=== PATIENT | female | born 1950 | race Caucasian/White ===

== ENCOUNTER 2018-07-24 09:00 | Outpatient (RCR) | payer MEDICARE, OTHER, SELFPAY ==
--- NOTE | 2018-07-09 08:52 | PT.OIE ---
Current Diagnoses Pain in right shoulder (07/07/18) Past Medical History (Last Reviewed 05/19/18 @ 07:28 by Ebony Rachel DO) Anxiety (Chronic ~2014) Carpal tunnel syndrome (Chronic ~2009) Chronic back pain (Chronic ~1989) Chronic cough (Chronic ~2016) Degenerative disc disease, lumbar (Chronic ~1994) Depression (Chronic ~1989) Foot pain (Chronic ~2011) Hay fever (Chronic ~1974) Irritable bowel syndrome (Chronic ~1999) Recurrent sinusitis (Chronic ~1974) Sleep apnea (Chronic ~2000) Chicken pox (Resolved ~1954) Measles (Resolved ~1954) Mumps (Resolved ~1954) Rheumatic fever (Resolved ~1958) Past Surgical History (Last Reviewed 05/19/18 @ 07:28 by Ebony Rachel DO) History of carpal tunnel repair (~2000) History of carpal tunnel repair (~2016) History of spinal fusion Status post breast reduction Status post cholecystectomy Status post hysterectomy Provider Visit Care Team Role Provider Type Ebony Rachel DO Attending Provider Physician Family Provider Primary Care Provider Specialty: Family Practice Address: [address] [place] [address] Email: [email or web address] Physical Therapy Initial Evaluation PT-OP-A Visit Information Start: 07/08/18 09:29 Freq: Status: Active Protocol: Document 07/07/18 09:00 AMB (Rec: 07/08/18 09:40 AMB [email or web address]) Out-Patient Physical Therapy Visit Information Visit Information Visit Type Initial Evaluation Visit Note 1/10 G code Visit Start Time 09:00 Visit Stop Time 09:45 Total Visit Minutes 45 Visit Number 1 Evaluation Information Evaluation Date 07/08/18 PT-OP-B Current Condition Start: 07/08/18 09:29 Freq: Status: Active Protocol: Document 07/07/18 09:00 AMB (Rec: 07/08/18 09:40 AMB [email or web address]) Current Condition History of Current Condition Onset Date 1 year ago Current Complaints R anterior shoulder pain History of Current Condition The patient denies specific injury, over the past year lifting the shoulder and sleeping on it have become progressively more painful. She is left handed. Prior Functional Status Baseline Function- Work/School Patient is retired Current Functional Impairments (Reported) Functional Limitations- ADL's Dressing and hair care are painful Functional Limitations- Recreation/ Yardwork is painful and she Hobbies avoids it. Personal Factors Other Personal Factors That May Effect Lumbar fusion history (PT did Therapy/Recovery not help with back pain), difficulty lying supine on treatment table due to back pain, even with knees bent. history of bilateral carpal tunnel release. PT-OP-C Subjective Start: 07/08/18 09:29 Freq: Status: Active Protocol: Document 07/07/18 09:00 AMB (Rec: 07/08/18 09:40 AMB [email or web address]) Patient Questionnaires Quick Dash- Upper Extremity Quick Dash UE Score 45 Quick Dash UE Impairment 40 to 59% Impaired (Score 40- 59) OP-PT Pain Assessment Location Right Anterior Shoulder Intensity 7 Scale Used Numeric (1 - 10) Pain Aggravating Factors ADL's Activity Exercise Lifting PT-OP-F Manual Assessment Start: 07/08/18 09:29 Freq: Status: Active Protocol: Document 07/07/18 09:00 AMB (Rec: 07/09/18 08:17 AMB [email or web address]) Manual Assessments Soft Tissue Assessment Soft Tissue Mobility Assessment Tenderness over proximal attachment of long head of biceps tendon. No tenderness over supraspinatus or over scapula. Joint Mobility Assessment Joint Mobility Assessment Guarding and tightness in GH joint especially into inferior and posterior glides. PT-OP-J Posture/Palpation/Skin Start: 07/08/18 09:29 Freq: Status: Active Protocol: Document 07/07/18 09:00 AMB (Rec: 07/09/18 08:17 AMB [email or web address]) Posture Evaluation Comments Posture Comments Moderate thoracic kyphosis with forward shoulders, milding winging scapulae bilaterally along medial border. PT-OP-K Range of Motion Start: 07/08/18 09:29 Freq: Status: Active Protocol: Document 07/07/18 09:00 AMB (Rec: 07/09/18 07:55 AMB [email or web address]) Shoulder Goniometric Range of Motion Shoulder Measured in Degrees Left Active Testing Position Sitting Flexion 170 Abduction 160 External Rotation at 0 degrees Abduction 70 Right Active Testing Position Sitting Flexion 150 Abduction 140 External Rotation at 0 degrees Abduction 50 PT-OP-L Special Tests Start: 07/08/18 09:29 Freq: Status: Active Protocol: Document 07/07/18 09:00 AMB (Rec: 07/09/18 07:55 AMB [email or web address]) Special Tests Shoulder Special Tests Empty Can Test Results positive on R, negative on L Vance Tad Impingement Test Results positive for pain on the R, not on the L PT-OP-M Strength Start: 07/08/18 09:29 Freq: Status: Active Protocol: Document 07/07/18 09:00 AMB (Rec: 07/09/18 07:55 AMB [email or web address]) Shoulder Strength Shoulder Manual Muscle Testing Right Flexion 3+ Fair+ Extension 4 Good Abduction (C5) 3+ Fair+ External Rotation 3- Fair- Internal Rotation 3- Fair- Left Reason Not Measured WFL PT-OP-Q Treatments Start: 07/08/18 09:29 Freq: Status: Active Protocol: Document 07/07/18 09:00 AMB (Rec: 07/09/18 08:17 AMB [email or web address]) Therapeutic Exercises Sitting Exercises 2 Sitting Exercise Name shoulder isometrics Reps/Minutes 5x5 ea Comments extension, ER, IR Standing Exercises 1 Standing Exercise Name Doorway stretch Reps/Minutes 30x2 Comments modifed to limited shoulder abduction PT-OP-T Assessment and Plan Start: 07/08/18 09:29 Freq: Status: Active Protocol: Document 07/07/18 09:00 AMB (Rec: 07/09/18 08:52 AMB [email or web address]) Physical Therapy Assessment Rehab Potential Rehabilitation Potential Good Evaluation Complexity Number of Personal Factors/Comorbidities 1-2 Number of Body Systems Impaired 4 or More Clinical Presentation at Evaluation Evolving Impairments Impairments Functional Activities Pain Posture ROM Soft Tissue Mobility Strength Goals Two Impairment Activity tolerance Short Term Goal (STG) The patient will wake up from sleep with 4/10 shoulder pain or less. STG Duration 4 weeks Usp Goal (LTG) The patient will lift a bag of groceries from the floor to countertop height without an increase in baseline pain. LTG Duration 8 weeks One Impairment Range of motion Short Term Goal (STG) The patient will increase her active shoulder flexion on the right to 160 degrees so that she can get a sweater on without increasing her baseline pain. STG Duration 4 weeks Route Delivery Supervisor Goal (LTG) The patient will increase her active shoulder abduction on the right to 150 degrees to assist in hair care. LTG Duration 8 weeks Assessment Summary Assessment The patient presents to physical therapy with worsening anterior shoulder pain with glenohumeral impingement, poor posture, strength, and range of motion. The patient will benefit from physical therapy to improve her strength and upper extremity function and reduce her pain. Physical Therapy Plan Frequency and Duration Frequency of Treatment 2x/Week Duration of Treatment 8 weeks Plan of Care Start Date 07/07/18 Plan of Care End Date 09/01/18 Therapeutic Interventions Therapeutic Interventions Home Exercise Program Joint Mobilizations Manual Therapy Neuromuscular Re-education Self-Care/Home Management Therapeutic Activities Therapeutic Exercises Modalities Cold Pack/Ice Massage Electric Stimulation Hot Packs Ultrasound Next Visit Focus/Plan Next Note Type Treatment Note
--- NOTE | 2018-07-09 08:53 | PT.OPPOC ---
Current Diagnoses Pain in right shoulder (07/07/18) Provider Visit Care Team Role Provider Type Ebony Rachel DO Attending Provider Physician Family Provider Primary Care Provider Specialty: Family Practice Address: [address] [place] [address], [id number] Email: [email or web address] Plan Of Care PT-OP-T Assessment and Plan Start: 07/08/18 09:29 Freq: Status: Active Protocol: Document 07/07/18 09:00 AMB (Rec: 07/09/18 08:52 AMB [email or web address]) Physical Therapy Assessment Rehab Potential Rehabilitation Potential Good Evaluation Complexity Number of Personal Factors/Comorbidities 1-2 Number of Body Systems Impaired 4 or More Clinical Presentation at Evaluation Evolving Impairments Impairments Functional Activities Pain Posture ROM Soft Tissue Mobility Strength Goals Two Impairment Activity tolerance Short Term Goal (STG) The patient will wake up from sleep with 4/10 shoulder pain or less. STG Duration 4 weeks Magazine Designer Goal (LTG) The patient will lift a bag of groceries from the floor to countertop height without an increase in baseline pain. LTG Duration 8 weeks One Impairment Range of motion Short Term Goal (STG) The patient will increase her active shoulder flexion on the right to 160 degrees so that she can get a sweater on without increasing her baseline pain. STG Duration 4 weeks Magazine Designer Goal (LTG) The patient will increase her active shoulder abduction on the right to 150 degrees to assist in hair care. LTG Duration 8 weeks Assessment Summary Assessment The patient presents to physical therapy with worsening anterior shoulder pain with glenohumeral impingement, poor posture, strength, and range of motion. The patient will benefit from physical therapy to improve her strength and upper extremity function and reduce her pain. Physical Therapy Plan Frequency and Duration Frequency of Treatment 2x/Week Duration of Treatment 8 weeks Plan of Care Start Date 07/07/18 Plan of Care End Date 09/01/18 Therapeutic Interventions Therapeutic Interventions Home Exercise Program Joint Mobilizations Manual Therapy Neuromuscular Re-education Self-Care/Home Management Therapeutic Activities Therapeutic Exercises Modalities Cold Pack/Ice Massage Electric Stimulation Hot Packs Ultrasound Next Visit Focus/Plan Next Note Type Treatment Note Plan of Care Dates Plan of Care Start Date 07/07/18 Plan of Care End Date 09/01/18 Please Sign and Return: I have reviewed this Plan of Care and certify that the skilled therapy services above are required to meet the patient?s needs. Physician Signature Date Printed Name and Credentials Clinical Instructor Signature Printed Name and Credentials
--- NOTE | 2018-07-10 12:51 | PT.OTN ---
Current Diagnoses Pain in right shoulder (07/10/18) Physical Therapy Treatment Note PT-OP-A Visit Information Start: 07/08/18 09:29 Freq: Status: Active Protocol: Document 07/10/18 09:00 AMB (Rec: 07/10/18 09:00 AMB [email or web address]) Out-Patient Physical Therapy Visit Information Visit Information Visit Type Treatment Note Visit Note 2/10 G code Visit Start Time 09:00 Visit Stop Time 09:45 Total Visit Minutes 45 Visit Number 2 Evaluation Information Evaluation Date 07/08/18 PT-OP-B Current Condition Start: 07/08/18 09:29 Freq: Status: Active Protocol: Document 07/07/18 09:00 AMB (Rec: 07/08/18 09:40 AMB [email or web address]) Current Condition History of Current Condition Onset Date 1 year ago Current Complaints R anterior shoulder pain History of Current Condition The patient denies specific injury, over the past year lifting hte shoulder and sleeping on it have become progressively more painful. She is left handed. Prior Functional Status Baseline Function- Work/School Patient is retired Current Functional Impairments (Reported) Functional Limitations- ADL's Dressing and hair care are painful Functional Limitations- Recreation/ Yardwork is painful and she Hobbies avoids it. Personal Factors Other Personal Factors That May Effect Lumbar fusion history (PT did Therapy/Recovery not help with back pain), difficulty lying supine on treatment table due to back pain, even with knees bent. history of bilateral carpal tunnel release. PT-OP-C Subjective Start: 07/08/18 09:29 Freq: Status: Active Protocol: Document 07/10/18 09:00 AMB (Rec: 07/10/18 09:09 AMB [id number]) OP-PT Subjective Patient Comments Patient Comments Pt states she has been having difficulty sleeping. PT-OP-F Manual Assessment Start: 07/08/18 09:29 Freq: Status: Active Protocol: Document 07/07/18 09:00 AMB (Rec: 07/09/18 08:17 AMB [email or web address]) Manual Assessments Soft Tissue Assessment Soft Tissue Mobility Assessment Tenderness over proximal attachment of long head of biceps tendon. No tenderness over supraspinatus or over scapula. Joint Mobility Assessment Joint Mobility Assessment Guarding and tightness in GH joint especially into inferior and posterior glides. PT-OP-J Posture/Palpation/Skin Start: 07/08/18 09:29 Freq: Status: Active Protocol: Document 07/07/18 09:00 AMB (Rec: 07/09/18 08:17 AMB [email or web address]) Posture Evaluation Comments Posture Comments Moderate thoracic kyphosis with forward shoulders, milding winging scapulae bilaterally along medial border. PT-OP-K Range of Motion Start: 07/08/18 09:29 Freq: Status: Active Protocol: Document 07/07/18 09:00 AMB (Rec: 07/09/18 07:55 AMB [email or web address]) Shoulder Goniometric Range of Motion Shoulder Measured in Degrees Left Active Testing Position Sitting Flexion 170 Abduction 160 External Rotation at 0 degrees Abduction 70 Right Active Testing Position Sitting Flexion 150 Abduction 140 External Rotation at 0 degrees Abduction 50 PT-OP-L Special Tests Start: 07/08/18 09:29 Freq: Status: Active Protocol: Document 07/07/18 09:00 AMB (Rec: 07/09/18 07:55 AMB [email or web address]) Special Tests Shoulder Special Tests Empty Can Test Results positive on R, negative on L Vance Tad Impingement Test Results positive for pain on the R, not on the L PT-OP-M Strength Start: 07/08/18 09:29 Freq: Status: Active Protocol: Document 07/07/18 09:00 AMB (Rec: 07/09/18 07:55 AMB [email or web address]) Shoulder Strength Shoulder Manual Muscle Testing Right Flexion 3+ Fair+ Extension 4 Good Abduction (C5) 3+ Fair+ External Rotation 3- Fair- Internal Rotation 3- Fair- Left Reason Not Measured WFL PT-OP-Q Treatments Start: 07/08/18 09:29 Freq: Status: Active Protocol: Document 07/10/18 09:00 AMB (Rec: 07/10/18 12:50 AMB [email or web address]) Cardio Equipment Upper Body Ergometer (UBE) Duration (Minutes) 5 RPM 60 Other fwd bckward Therapeutic Exercises Sidelying Exercises 1 Sidelying Exercise Name R shoulder ER AROM Reps/Minutes 2x10 Sitting Exercises 3 Sitting Exercise Name scapular retraction Reps/Minutes 2x10, 3 hold Comments AROM 1 Sitting Exercise Name 3 way biceps curl Resistance 3# Reps/Minutes 2x10 2 Sitting Exercise Name shoulder isometrics Reps/Minutes 5x5 ea Comments extension, ER, IR Manual Therapy Treatment Soft Tissue Mobilization 1 Body Location R shoulder Mobilization Type Cross-Friction Intensity/Depth Moderate Body Position Sidelying Taping 1 Body Location R shoulder Type of Tape Kinesio Tape Comments Y and I PT-OP-T Assessment and Plan Start: 07/08/18 09:29 Freq: Status: Active Protocol: Document 07/10/18 09:00 AMB (Rec: 07/10/18 12:50 AMB [email or web address]) Physical Therapy Assessment Assessment Summary Assessment Pt tolerated treatment well, but against gravity abduction is painful. Physical Therapy Plan Next Visit Focus/Plan Next Note Type Treatment Note Next Visit Plan Progress scapular stability
--- NOTE | 2018-07-15 13:01 | PT.OTN ---
Current Diagnoses Pain in right shoulder (07/15/18) Physical Therapy Treatment Note PT-OP-A Visit Information Start: 07/08/18 09:29 Freq: Status: Active Protocol: Document 07/15/18 09:00 AMB (Rec: 07/15/18 09:10 AMB [id number]) Out-Patient Physical Therapy Visit Information Visit Information Visit Type Treatment Note Visit Note 3/10 G code Visit Start Time 09:00 Visit Stop Time 09:45 Total Visit Minutes 45 Visit Number 3 Evaluation Information Evaluation Date 07/08/18 PT-OP-B Current Condition Start: 07/08/18 09:29 Freq: Status: Active Protocol: Document 07/07/18 09:00 AMB (Rec: 07/08/18 09:40 AMB [email or web address]) Current Condition History of Current Condition Onset Date 1 year ago Current Complaints R anterior shoulder pain History of Current Condition The patient denies specific injury, over the past year lifting hte shoulder and sleeping on it have become progressively more painful. She is left handed. Prior Functional Status Baseline Function- Work/School Patient is retired Current Functional Impairments (Reported) Functional Limitations- ADL's Dressing and hair care are painful Functional Limitations- Recreation/ Yardwork is painful and she Hobbies avoids it. Personal Factors Other Personal Factors That May Effect Lumbar fusion history (PT did Therapy/Recovery not help with back pain), difficulty lying supine on treatment table due to back pain, even with knees bent. history of bilateral carpal tunnel release. PT-OP-C Subjective Start: 07/08/18 09:29 Freq: Status: Active Protocol: Document 07/15/18 09:00 AMB (Rec: 07/15/18 09:10 AMB [id number]) OP-PT Subjective Patient Comments Patient Comments Pt states waking up in the morning has been better, but then the pain starts about an hour later. PT-OP-F Manual Assessment Start: 07/08/18 09:29 Freq: Status: Active Protocol: Document 07/07/18 09:00 AMB (Rec: 07/09/18 08:17 AMB [email or web address]) Manual Assessments Soft Tissue Assessment Soft Tissue Mobility Assessment Tenderness over proximal attachment of long head of biceps tendon. No tenderness over supraspinatus or over scapula. Joint Mobility Assessment Joint Mobility Assessment Guarding and tightness in GH joint especially into inferior and posterior glides. PT-OP-J Posture/Palpation/Skin Start: 07/08/18 09:29 Freq: Status: Active Protocol: Document 07/07/18 09:00 AMB (Rec: 07/09/18 08:17 AMB [email or web address]) Posture Evaluation Comments Posture Comments Moderate thoracic kyphosis with forward shoulders, milding winging scapulae bilaterally along medial border. PT-OP-K Range of Motion Start: 07/08/18 09:29 Freq: Status: Active Protocol: Document 07/07/18 09:00 AMB (Rec: 07/09/18 07:55 AMB [email or web address]) Shoulder Goniometric Range of Motion Shoulder Measured in Degrees Left Active Testing Position Sitting Flexion 170 Abduction 160 External Rotation at 0 degrees Abduction 70 Right Active Testing Position Sitting Flexion 150 Abduction 140 External Rotation at 0 degrees Abduction 50 PT-OP-L Special Tests Start: 07/08/18 09:29 Freq: Status: Active Protocol: Document 07/07/18 09:00 AMB (Rec: 07/09/18 07:55 AMB [email or web address]) Special Tests Shoulder Special Tests Empty Can Test Results positive on R, negative on L Vance Tad Impingement Test Results positive for pain on the R, not on the L PT-OP-M Strength Start: 07/08/18 09:29 Freq: Status: Active Protocol: Document 07/07/18 09:00 AMB (Rec: 07/09/18 07:55 AMB [email or web address]) Shoulder Strength Shoulder Manual Muscle Testing Right Flexion 3+ Fair+ Extension 4 Good Abduction (C5) 3+ Fair+ External Rotation 3- Fair- Internal Rotation 3- Fair- Left Reason Not Measured WFL PT-OP-Q Treatments Start: 07/08/18 09:29 Freq: Status: Active Protocol: Document 07/15/18 09:00 AMB (Rec: 07/15/18 09:18 AMB [email or web address]) Therapeutic Exercises Supine Exercises 1 Supine Exercise Name serratus punch Side right Reps/Minutes 2x10 Sidelying Exercises 1 Sidelying Exercise Name R shoulder ER AROM Reps/Minutes 2x10 Sitting Exercises 4 Sitting Exercise Name daphne Comments flexion only 3 Sitting Exercise Name scapular retraction Reps/Minutes 2x10, 3 hold Comments with #3 t band 1 Sitting Exercise Name 3 way biceps curl Resistance 3# Reps/Minutes 2x10 2 Sitting Exercise Name shoulder isometrics Reps/Minutes 5x5 ea Comments extension, ER, IR Manual Therapy Treatment Soft Tissue Mobilization 1 Body Location R shoulder Mobilization Type Cross-Friction Intensity/Depth Moderate Body Position Sidelying Taping 1 Body Location R shoulder Type of Tape Kinesio Tape Comments Y and I PT-OP-T Assessment and Plan Start: 07/08/18 09:29 Freq: Status: Active Protocol: Document 07/15/18 09:00 AMB (Rec: 07/15/18 12:59 AMB [email or web address]) Physical Therapy Assessment Assessment Summary Assessment Pt tolerated increased resistance well Physical Therapy Plan Next Visit Focus/Plan Next Note Type Treatment Note Next Visit Plan progress HEP
--- NOTE | 2018-07-17 12:00 | PT.OTN ---
Current Diagnoses Pain in right shoulder (07/17/18) Physical Therapy Treatment Note PT-OP-A Visit Information Start: 07/08/18 09:29 Freq: Status: Active Protocol: Document 07/17/18 09:00 AMB (Rec: 07/17/18 09:12 AMB [id number]) Out-Patient Physical Therapy Visit Information Visit Information Visit Type Treatment Note Visit Note 4/10 G code Visit Start Time 09:00 Visit Stop Time 09:45 Total Visit Minutes 45 Visit Number 4 Evaluation Information Evaluation Date 07/08/18 PT-OP-B Current Condition Start: 07/08/18 09:29 Freq: Status: Active Protocol: Document 07/07/18 09:00 AMB (Rec: 07/08/18 09:40 AMB [email or web address]) Current Condition History of Current Condition Onset Date 1 year ago Current Complaints R anterior shoulder pain History of Current Condition The patient denies specific injury, over the past year lifting hte shoulder and sleeping on it have become progressively more painful. She is left handed. Prior Functional Status Baseline Function- Work/School Patient is retired Current Functional Impairments (Reported) Functional Limitations- ADL's Dressing and hair care are painful Functional Limitations- Recreation/ Yardwork is painful and she Hobbies avoids it. Personal Factors Other Personal Factors That May Effect Lumbar fusion history (PT did Therapy/Recovery not help with back pain), difficulty lying supine on treatment table due to back pain, even with knees bent. history of bilateral carpal tunnel release. PT-OP-C Subjective Start: 07/08/18 09:29 Freq: Status: Active Protocol: Document 07/17/18 09:00 AMB (Rec: 07/17/18 09:12 AMB [id number]) OP-PT Subjective Patient Comments Patient Comments Pt states pain was increased yesterday morning, today it was ok. PT-OP-F Manual Assessment Start: 07/08/18 09:29 Freq: Status: Active Protocol: Document 07/07/18 09:00 AMB (Rec: 07/09/18 08:17 AMB [email or web address]) Manual Assessments Soft Tissue Assessment Soft Tissue Mobility Assessment Tenderness over proximal attachment of long head of biceps tendon. No tenderness over supraspinatus or over scapula. Joint Mobility Assessment Joint Mobility Assessment Guarding and tightness in GH joint especially into inferior and posterior glides. PT-OP-J Posture/Palpation/Skin Start: 07/08/18 09:29 Freq: Status: Active Protocol: Document 07/07/18 09:00 AMB (Rec: 07/09/18 08:17 AMB [email or web address]) Posture Evaluation Comments Posture Comments Moderate thoracic kyphosis with forward shoulders, milding winging scapulae bilaterally along medial border. PT-OP-K Range of Motion Start: 07/08/18 09:29 Freq: Status: Active Protocol: Document 07/07/18 09:00 AMB (Rec: 07/09/18 07:55 AMB [email or web address]) Shoulder Goniometric Range of Motion Shoulder Measured in Degrees Left Active Testing Position Sitting Flexion 170 Abduction 160 External Rotation at 0 degrees Abduction 70 Right Active Testing Position Sitting Flexion 150 Abduction 140 External Rotation at 0 degrees Abduction 50 PT-OP-L Special Tests Start: 07/08/18 09:29 Freq: Status: Active Protocol: Document 07/07/18 09:00 AMB (Rec: 07/09/18 07:55 AMB [email or web address]) Special Tests Shoulder Special Tests Empty Can Test Results positive on R, negative on L Vance Tad Impingement Test Results positive for pain on the R, not on the L PT-OP-M Strength Start: 07/08/18 09:29 Freq: Status: Active Protocol: Document 07/07/18 09:00 AMB (Rec: 07/09/18 07:55 AMB [email or web address]) Shoulder Strength Shoulder Manual Muscle Testing Right Flexion 3+ Fair+ Extension 4 Good Abduction (C5) 3+ Fair+ External Rotation 3- Fair- Internal Rotation 3- Fair- Left Reason Not Measured WFL PT-OP-Q Treatments Start: 07/08/18 09:29 Freq: Status: Active Protocol: Document 07/15/18 09:00 AMB (Rec: 07/15/18 09:18 AMB [id number]) Therapeutic Exercises Supine Exercises 1 Supine Exercise Name serratus punch Side right Reps/Minutes 2x10 Sidelying Exercises 1 Sidelying Exercise Name R shoulder ER AROM Reps/Minutes 2x10 Sitting Exercises 4 Sitting Exercise Name daphne Comments flexion only 3 Sitting Exercise Name scapular retraction Reps/Minutes 2x10, 3 hold Comments with #3 t band 1 Sitting Exercise Name 3 way biceps curl Resistance 3# Reps/Minutes 2x10 2 Sitting Exercise Name shoulder isometrics Reps/Minutes 5x5 ea Comments extension, ER, IR Manual Therapy Treatment Soft Tissue Mobilization 1 Body Location R shoulder Mobilization Type Cross-Friction Intensity/Depth Moderate Body Position Sidelying Taping 1 Body Location R shoulder Type of Tape Kinesio Tape Comments Y and I PT-OP-T Assessment and Plan Start: 07/08/18 09:29 Freq: Status: Active Protocol: Document 07/15/18 09:00 AMB (Rec: 07/15/18 12:59 AMB [email or web address]) Physical Therapy Assessment Assessment Summary Assessment Pt tolerated increased resistance well Physical Therapy Plan Next Visit Focus/Plan Next Note Type Treatment Note Next Visit Plan progress HEP
--- NOTE | 2018-07-21 11:54 | PT.OTN ---
Current Diagnoses Pain in right shoulder (07/21/18) Physical Therapy Treatment Note PT-OP-A Visit Information Start: 07/08/18 09:29 Freq: Status: Active Protocol: Document 07/21/18 09:00 AMB (Rec: 07/21/18 09:01 AMB [id number]) Out-Patient Physical Therapy Visit Information Evaluation Information Evaluation Date 07/08/18 PT-OP-B Current Condition Start: 07/08/18 09:29 Freq: Status: Active Protocol: Document 07/07/18 09:00 AMB (Rec: 07/08/18 09:40 AMB [email or web address]) Current Condition History of Current Condition Onset Date 1 year ago Current Complaints R anterior shoulder pain History of Current Condition The patient denies specific injury, over the past year lifting hte shoulder and sleeping on it have become progressively more painful. She is left handed. Prior Functional Status Baseline Function- Work/School Patient is retired Current Functional Impairments (Reported) Functional Limitations- ADL's Dressing and hair care are painful Functional Limitations- Recreation/ Yardwork is painful and she Hobbies avoids it. Personal Factors Other Personal Factors That May Effect Lumbar fusion history (PT did Therapy/Recovery not help with back pain), difficulty lying supine on treatment table due to back pain, even with knees bent. history of bilateral carpal tunnel release. PT-OP-C Subjective Start: 07/08/18 09:29 Freq: Status: Active Protocol: Document 07/21/18 09:00 AMB (Rec: 07/21/18 09:08 AMB [id number]) OP-PT Subjective Patient Comments Patient Comments The pt reports she slept wrong 2 nights ago and that irritated her arm. PT-OP-F Manual Assessment Start: 07/08/18 09:29 Freq: Status: Active Protocol: Document 07/07/18 09:00 AMB (Rec: 07/09/18 08:17 AMB [email or web address]) Manual Assessments Soft Tissue Assessment Soft Tissue Mobility Assessment Tenderness over proximal attachment of long head of biceps tendon. No tenderness over supraspinatus or over scapula. Joint Mobility Assessment Joint Mobility Assessment Guarding and tightness in GH joint especially into inferior and posterior glides. PT-OP-J Posture/Palpation/Skin Start: 07/08/18 09:29 Freq: Status: Active Protocol: Document 07/07/18 09:00 AMB (Rec: 07/09/18 08:17 AMB [email or web address]) Posture Evaluation Comments Posture Comments Moderate thoracic kyphosis with forward shoulders, milding winging scapulae bilaterally along medial border. PT-OP-K Range of Motion Start: 07/08/18 09:29 Freq: Status: Active Protocol: Document 07/07/18 09:00 AMB (Rec: 07/09/18 07:55 AMB [email or web address]) Shoulder Goniometric Range of Motion Shoulder Measured in Degrees Left Active Testing Position Sitting Flexion 170 Abduction 160 External Rotation at 0 degrees Abduction 70 Right Active Testing Position Sitting Flexion 150 Abduction 140 External Rotation at 0 degrees Abduction 50 PT-OP-L Special Tests Start: 07/08/18 09:29 Freq: Status: Active Protocol: Document 07/07/18 09:00 AMB (Rec: 07/09/18 07:55 AMB [email or web address]) Special Tests Shoulder Special Tests Empty Can Test Results positive on R, negative on L Vance Tad Impingement Test Results positive for pain on the R, not on the L PT-OP-M Strength Start: 07/08/18 09:29 Freq: Status: Active Protocol: Document 07/07/18 09:00 AMB (Rec: 07/09/18 07:55 AMB [email or web address]) Shoulder Strength Shoulder Manual Muscle Testing Right Flexion 3+ Fair+ Extension 4 Good Abduction (C5) 3+ Fair+ External Rotation 3- Fair- Internal Rotation 3- Fair- Left Reason Not Measured WFL PT-OP-Q Treatments Start: 07/08/18 09:29 Freq: Status: Active Protocol: Document 07/21/18 09:00 AMB (Rec: 07/21/18 11:53 AMB [email or web address]) Therapeutic Exercises Supine Exercises 1 Supine Exercise Name serratus punch Side right Reps/Minutes 2x10 Sidelying Exercises 2 Sidelying Exercise Name abduction AROM Reps/Minutes 5 Comments 0-45 degrees Sitting Exercises 4 Sitting Exercise Name daphne Comments flexion and abduction 3 Sitting Exercise Name scapular retraction Reps/Minutes 2x10, 3 hold Comments with #3 t band Standing Exercises 2 Standing Exercise Name IR t band Resistance #1 Reps/Minutes 2x10 Manual Therapy Treatment Soft Tissue Mobilization 1 Body Location R shoulder Mobilization Type Cross-Friction Intensity/Depth Moderate Body Position Sidelying Joint Mobilizations 1 Joint scapulothoracic Direction all planes Grade III Body Position Sidelying PT-OP-T Assessment and Plan Start: 07/08/18 09:29 Freq: Status: Active Protocol: Document 07/21/18 09:00 AMB (Rec: 07/21/18 11:53 AMB [email or web address]) Physical Therapy Assessment Assessment Summary Assessment Pt with significant soreness with shoulder abduction. Physical Therapy Plan Next Visit Focus/Plan Next Note Type Treatment Note Next Visit Plan Progress HEP
--- NOTE | 2018-07-24 15:08 | PT.OTN ---
Current Diagnoses Pain in right shoulder (07/24/18) Physical Therapy Treatment Note PT-OP-A Visit Information Start: 07/08/18 09:29 Freq: Status: Active Protocol: Document 07/24/18 09:00 AMB (Rec: 07/24/18 15:07 AMB [email or web address]) Out-Patient Physical Therapy Visit Information Visit Information Visit Type Treatment Note Visit Note 6/10 G code Visit Start Time 09:00 Visit Stop Time 09:45 Total Visit Minutes 45 Visit Number 6 Evaluation Information Evaluation Date 07/08/18 PT-OP-B Current Condition Start: 07/08/18 09:29 Freq: Status: Active Protocol: Document 07/07/18 09:00 AMB (Rec: 07/08/18 09:40 AMB [email or web address]) Current Condition History of Current Condition Onset Date 1 year ago Current Complaints R anterior shoulder pain History of Current Condition The patient denies specific injury, over the past year lifting hte shoulder and sleeping on it have become progressively more painful. She is left handed. Prior Functional Status Baseline Function- Work/School Patient is retired Current Functional Impairments (Reported) Functional Limitations- ADL's Dressing and hair care are painful Functional Limitations- Recreation/ Yardwork is painful and she Hobbies avoids it. Personal Factors Other Personal Factors That May Effect Lumbar fusion history (PT did Therapy/Recovery not help with back pain), difficulty lying supine on treatment table due to back pain, even with knees bent. history of bilateral carpal tunnel release. PT-OP-C Subjective Start: 07/08/18 09:29 Freq: Status: Active Protocol: Document 07/21/18 09:00 AMB (Rec: 07/21/18 09:08 AMB [id number]) OP-PT Subjective Patient Comments Patient Comments The pt reports she slept wrong 2 nights ago and that irritated her arm. PT-OP-F Manual Assessment Start: 07/08/18 09:29 Freq: Status: Active Protocol: Document 07/07/18 09:00 AMB (Rec: 07/09/18 08:17 AMB [email or web address]) Manual Assessments Soft Tissue Assessment Soft Tissue Mobility Assessment Tenderness over proximal attachment of long head of biceps tendon. No tenderness over supraspinatus or over scapula. Joint Mobility Assessment Joint Mobility Assessment Guarding and tightness in GH joint especially into inferior and posterior glides. PT-OP-J Posture/Palpation/Skin Start: 07/08/18 09:29 Freq: Status: Active Protocol: Document 07/07/18 09:00 AMB (Rec: 07/09/18 08:17 AMB [email or web address]) Posture Evaluation Comments Posture Comments Moderate thoracic kyphosis with forward shoulders, milding winging scapulae bilaterally along medial border. PT-OP-K Range of Motion Start: 07/08/18 09:29 Freq: Status: Active Protocol: Document 07/07/18 09:00 AMB (Rec: 07/09/18 07:55 AMB [email or web address]) Shoulder Goniometric Range of Motion Shoulder Measured in Degrees Left Active Testing Position Sitting Flexion 170 Abduction 160 External Rotation at 0 degrees Abduction 70 Right Active Testing Position Sitting Flexion 150 Abduction 140 External Rotation at 0 degrees Abduction 50 PT-OP-L Special Tests Start: 07/08/18 09:29 Freq: Status: Active Protocol: Document 07/07/18 09:00 AMB (Rec: 07/09/18 07:55 AMB [email or web address]) Special Tests Shoulder Special Tests Empty Can Test Results positive on R, negative on L Vance Tad Impingement Test Results positive for pain on the R, not on the L PT-OP-M Strength Start: 07/08/18 09:29 Freq: Status: Active Protocol: Document 07/07/18 09:00 AMB (Rec: 07/09/18 07:55 AMB [email or web address]) Shoulder Strength Shoulder Manual Muscle Testing Right Flexion 3+ Fair+ Extension 4 Good Abduction (C5) 3+ Fair+ External Rotation 3- Fair- Internal Rotation 3- Fair- Left Reason Not Measured WFL PT-OP-Q Treatments Start: 07/08/18 09:29 Freq: Status: Active Protocol: Document 07/24/18 09:00 AMB (Rec: 07/24/18 15:07 AMB [email or web address]) Cardio Equipment Upper Body Ergometer (UBE) Duration (Minutes) 5 RPM 60 Other fwd bckward Therapeutic Exercises Supine Exercises 1 Supine Exercise Name serratus punch Side right Reps/Minutes 2x10 Sidelying Exercises 2 Sidelying Exercise Name abduction AROM Reps/Minutes 10 Comments 0-45 degrees 1 Sidelying Exercise Name R shoulder ER AROM Reps/Minutes 2x10 Standing Exercises 3 Standing Exercise Name shoulder extension t band Resistance #1 Reps/Minutes 2x10 2 Standing Exercise Name IR t band Resistance #1 Reps/Minutes 2x10 1 Standing Exercise Name Er tband Resistance #1 Reps/Minutes 1x10 Manual Therapy Treatment Soft Tissue Mobilization 1 Body Location R shoulder Mobilization Type Cross-Friction Intensity/Depth Moderate Body Position Sidelying Joint Mobilizations 1 Joint scapulothoracic Direction all planes Grade III Body Position Sidelying Other Other Manual Treatments passive GH ROM- stretching into flexion, horizontal abduction, ER, IR PT-OP-R Modalities Start: 07/08/18 09:29 Freq: Status: Active Protocol: Document 07/24/18 09:00 AMB (Rec: 07/24/18 15:08 AMB [email or web address]) Hot Pack/Cold Pack Treatment Cold Pack Location R shoulder Patient Position Hooklying Treatment Duration (minutes) 10 Patient Tolerance Good PT-OP-T Assessment and Plan Start: 07/08/18 09:29 Freq: Status: Active Protocol: Document 07/24/18 09:00 AMB (Rec: 07/24/18 15:07 AMB [email or web address]) Physical Therapy Assessment Assessment Summary Assessment Pt continues to have pain with shoulder abduction, but shoulder flexion is improving. Physical Therapy Plan Next Visit Focus/Plan Next Note Type Treatment Note Next Visit Plan Progress shoulder flexion strengthening as tolerated.
--- NOTE | 2018-08-06 08:59 | PT.OPDS ---
Current Diagnoses Pain in right shoulder (07/24/18) Provider Visit Care Team Role Provider Type Ebony Rachel DO Attending Provider Physician Family Provider Primary Care Provider Specialty: Family Practice Address: [address] [place] [address], [id number] Email: [email or web address] Visit Number Visit Number 6 Discharge Summary PT-OP-B Current Condition Start: 07/08/18 09:29 Freq: Status: Active Protocol: Document 07/07/18 09:00 AMB (Rec: 07/08/18 09:40 AMB [email or web address]) Current Condition History of Current Condition Onset Date 1 year ago Current Complaints R anterior shoulder pain History of Current Condition The patient denies specific injury, over the past year lifting hte shoulder and sleeping on it have become progressively more painful. She is left handed. Prior Functional Status Baseline Function- Work/School Patient is retired Current Functional Impairments (Reported) Functional Limitations- ADL's Dressing and hair care are painful Functional Limitations- Recreation/ Yardwork is painful and she Hobbies avoids it. Personal Factors Other Personal Factors That May Effect Lumbar fusion history (PT did Therapy/Recovery not help with back pain), difficulty lying supine on treatment table due to back pain, even with knees bent. history of bilateral carpal tunnel release. PT-OP-C Subjective Start: 07/08/18 09:29 Freq: Status: Active Protocol: Document 07/21/18 09:00 AMB (Rec: 07/21/18 09:08 AMB [id number]) OP-PT Subjective Patient Comments Patient Comments The pt reports she slept wrong 2 nights ago and that irritated her arm. PT-OP-F Manual Assessment Start: 07/08/18 09:29 Freq: Status: Active Protocol: Document 07/07/18 09:00 AMB (Rec: 07/09/18 08:17 AMB [email or web address]) Manual Assessments Soft Tissue Assessment Soft Tissue Mobility Assessment Tenderness over proximal attachment of long head of biceps tendon. No tenderness over supraspinatus or over scapula. Joint Mobility Assessment Joint Mobility Assessment Guarding and tightness in GH joint especially into inferior and posterior glides. PT-OP-J Posture/Palpation/Skin Start: 07/08/18 09:29 Freq: Status: Active Protocol: Document 07/07/18 09:00 AMB (Rec: 07/09/18 08:17 AMB [email or web address]) Posture Evaluation Comments Posture Comments Moderate thoracic kyphosis with forward shoulders, milding winging scapulae bilaterally along medial border. PT-OP-K Range of Motion Start: 07/08/18 09:29 Freq: Status: Active Protocol: Document 07/07/18 09:00 AMB (Rec: 07/09/18 07:55 AMB [email or web address]) Shoulder Goniometric Range of Motion Shoulder Measured in Degrees Left Active Testing Position Sitting Flexion 170 Abduction 160 External Rotation at 0 degrees Abduction 70 Right Active Testing Position Sitting Flexion 150 Abduction 140 External Rotation at 0 degrees Abduction 50 PT-OP-L Special Tests Start: 07/08/18 09:29 Freq: Status: Active Protocol: Document 07/07/18 09:00 AMB (Rec: 07/09/18 07:55 AMB [email or web address]) Special Tests Shoulder Special Tests Empty Can Test Results positive on R, negative on L Vance Tad Impingement Test Results positive for pain on the R, not on the L PT-OP-M Strength Start: 07/08/18 09:29 Freq: Status: Active Protocol: Document 07/07/18 09:00 AMB (Rec: 07/09/18 07:55 AMB [email or web address]) Shoulder Strength Shoulder Manual Muscle Testing Right Flexion 3+ Fair+ Extension 4 Good Abduction (C5) 3+ Fair+ External Rotation 3- Fair- Internal Rotation 3- Fair- Left Reason Not Measured WFL PT-OP-T Assessment and Plan Start: 07/08/18 09:29 Freq: Status: Active Protocol: Document 08/06/18 08:55 AMB (Rec: 08/06/18 08:59 AMB [email or web address]) Physical Therapy Assessment Goals Two Impairment Activity tolerance Short Term Goal (STG) The patient will wake up from sleep with 4/10 shoulder pain or less. PARTIALLY MET- intermittent STG Duration 4 weeks Emergency Operator Goal (LTG) The patient will lift a bag of groceries from the floor to countertop height without an increase in baseline pain. NOT MET LTG Duration 8 weeks One Impairment Range of motion Short Term Goal (STG) The patient will increase her active shoulder flexion on the right to 160 degrees so that she can get a sweater on without increasing her baseline pain. PROGRESS MADE- PROM improved - but AROM still impaired STG Duration 4 weeks Assisted Goal (LTG) The patient will increase her active shoulder abduction on the right to 150 degrees to assist in hair care. NOT MET LTG Duration 8 weeks Assessment Summary Assessment Pt attended 6 visits of PT. Overall sx were slightly improved, but she continued to have pain with more challenging tasks. She will need to continue with her HEP and will likely continue to have shoulder impairements in the near future. Physical Therapy Plan Discharge Physical Therapy Discharge Reasons Patient Request
== END 2018-08-20 12:52 ==
LOC: PHYS 09:00
PROVIDERS: Family Provider Family Medicine; PCP Family Medicine; Visit Provider Family Medicine
DX: M25.511 Pain in right shoulder (principal)
CPT/HCPCS: 97010; 97110; 97140; 97162

== ENCOUNTER 2018-09-15 13:17 | Emergency (ER) | payer MEDICARE, OTHER, SELFPAY ==
[2018-09-15 13:34] VITALS: BP 115/63; PULSE 88; RESP 20; TEMP 37.5; O2SAT 98; BMI 28.5
[2018-09-15 14:31] VITALS: BP 110/63; PULSE 80; RESP 16; TEMP 37.9; O2SAT 96
[2018-09-15] MEDS: SODIUM CHLORIDE 0.9% 1,000 ML 150 ML IV (15:53)
[2018-09-15 15:58] LABS: Add Manual Diff / Slide Review NO; Basophils Percent Auto 1.3 % (0-2); Eosinophils Percent Auto 0.6 % (2-4); Hematocrit 36.7 % (36-46); Hemoglobin 12.1 g/dL (12.0-16.0); Mean Corpuscular HGB Conc 33.1 % (30-36); Mean Corpuscular Hemoglobin 28.8 PG (26-34); Mean Corpuscular Volume 86.9 fL (80-100); Monocytes Percent Auto 7.5 % (3-14); Neutrophils Absolute Auto 13900 /uL (3000-5900); Neutrophils Percent Auto 75.6 % (50-75); Platelet Count 267 X10^3/uL (150-400); Red Blood Cell Count 4.22 X10^6/uL (4.0-5.2); Red Cell Distribution Width 13.6 % (11.6-14.8); White Blood Cell Count 18.3 X10^3/uL (4.5-11.0)
[2018-09-15 16:14] LABS: Alanine Aminotransferase 21 IU/L (9-52); Albumin 4.5 g/dL (3.5-5.0); Albumin Globulin Ratio 1.7 (1.0-2.8); Alkaline Phosphatase 90 U/L (38-126); Aspartate Aminotransferase 20 IU/L (14-36); BUN Creatinine Ratio 16.3 (6-22); Bilirubin Total 0.5 mg/dL (0.2-1.3); Blood Urea Nitrogen 13 mg/dL (7-17); Calcium 9.5 mg/dL (8.4-10.2); Carbon Dioxide 27 mmol/L (22-32); Chloride 102 mmol/L (98-107); Estimated Glomerular Filt Rate > 60.0 mL/min (>60); Globulin 2.7 g/dL (1.7-4.1); Glucose 87 mg/dL (80-110); HEMOLYSIS < 15 (0-50); Lipase 20 U/L (23-300); Sodium 141 mmol/L (137-145); Total Protein 7.2 g/dL (6.3-8.2)
--- NOTE | 2018-09-15 16:48 | ED.ABDPAIN ---
HPI - Abdominal Pain <SONIA Sabillon - Last Filed: 09/15/18 22:12> General Chief Complaint: Abdominal Pain Stated Complaint: IRRATIABLE BOWEL, DEHYDRATION Time Seen by Provider: 09/15/18 16:47 Source: patient Mode of arrival: ambulatory Limitations: no limitations History of Present Illness HPI narrative: 68-year-old female with history of IBS and is an everyday smoker here for complaint of bilateral lower abdominal pain since yesterday. She denies any trauma to the area. She states her symptoms feels like her bowels in knots. She denies any urinary symptoms. Last bowel movement was a couple of days ago was unremarkable. She did state she had a small bowel movement earlier today were she had a couple of pellets that she passed. She states she has had the chills for last couple of days. She did not know she had a temperature. She states that this is not typical of her IBS symptoms. She denies any flank pain. She also reports that she is having some nausea with no vomiting. Related Data Home Medications Medication Instructions Recorded Confirmed cholecalciferol (vitamin D3) 1 cap PO QDAY #0 09/20/17 09/15/18 cyanocobalamin (vitamin B-12) 2 tab PO QDAY #0 09/20/17 09/15/18 [Vitamin B-12] levothyroxine 1 tab PO SUTUWEFRSA 09/15/18 09/15/18 levothyroxine [Synthroid] 2 tab PO MOTH 09/15/18 09/15/18 lorazepam 1 mg PO BIDP PRN 09/15/18 09/15/18 Previous Rx's Medication Instructions Recorded albuterol sulfate 3 ml INH X1 #1 ea 09/21/17 atorvastatin 40 mg tablet 40 mg PO HS #90 tab 05/16/18 citalopram 20 mg tablet 40 mg PO QDAY #180 tab 05/16/18 dicyclomine 10 mg capsule 10 mg PO BID #180 cap 05/16/18 lisinopril 20 mg tablet 20 mg PO QDAY #90 tab 05/16/18 trazodone 50 mg tablet 50 mg PO HS #90 tab 05/16/18 ciprofloxacin HCl 500 mg PO BID #14 tab 09/15/18 hydrocodone-acetaminophen [[place]] 1 tab PO Q4-6H PRN #15 tab 09/15/18 metronidazole 500 mg PO TID #21 tab 09/15/18 ondansetron 4 mg PO BID-TID PRN #10 tab 09/15/18 Allergies Allergy/AdvReac Type Severity Reaction Status Date / Time Sulfa (Sulfonamide Allergy Severe SWELL UP Verified 09/15/18 13:34 Antibiotics) oxycodone [OXYCODONE] Allergy Intermediate Verified 09/15/18 13:34 morphine Allergy Unknown Not Verified 09/15/18 13:34 allergic - patient doesn't want it. Review of Systems <SONIA Sabillon - Last Filed: 09/15/18 22:12> Constitutional Reports chills, Denies fever(s), Denies lethargy and Denies weakness Eyes Denies change in vision, Denies eye discharge, Denies irritation and Denies loss of vision ENT Ears, Nose, Mouth, and Throat: Denies change in voice, Denies neck pain and Denies sore throat Cardiovascular Denies chest pain, Denies irregular heart rhythm, Denies lightheadedness, Denies palpitations, Denies dyspnea, Denies dyspnea on exertion and Denies orthopnea Respiratory Denies cough, Denies dyspnea, Denies dyspnea on exertion and Denies wheezing Gastrointestinal Gastrointestinal: Reports abdominal pain, Denies change in bowel habits, Denies diarrhea, Denies nausea and Denies vomiting Genitourinary Denies hematuria, Denies flank pain, Denies urinary incontinence and Denies urinary urgency Musculoskeletal Denies neck pain Integumentary/Breasts Denies pruritus, Denies erythema, Denies rash and Denies wounds Neurologic Denies confusion, Denies loss of vision and Denies weakness Psychiatric Denies anxiety, Denies confusion, Denies depression, Denies homicidal ideation and Denies suicidal ideation Endocrine Denies palpitations Hematologic/Lymphatic Denies easy bruising Allergic/Immunologic Denies wheezing Exam <SONIA Sabillon - Last Filed: 09/15/18 22:12> Initial Vital Signs Initial Vital Signs: Vital Signs Temperature 99.5 F 09/15/18 13:34 Pulse Rate 88 09/15/18 13:34 Respiratory Rate 20 09/15/18 13:34 Blood Pressure 115/63 09/15/18 13:34 Pulse Oximetry 98 09/15/18 13:34 Const General: cooperative and well developed Nutritional Appearance: well nourished Orientation: alert, awake, oriented x3 and not confused [facility] Mouth: oral mucosae normal and moist mucous membranes Eyes Conjunctivae: conjunctivae normal Sclera: sclerae normal Pupils: PERRL EOM: EOM intact bilaterally Resp Effort & Inspection: normal respiratory effort, able to speak in complete sentences, no respiratory distress and no use of accessory muscles Auscultation: clear to auscultation bilaterally, no rales, no rhonchi and no wheezes Cardio Rate: regular rate Rhythm: regular rhythm Heart Sounds: no click, no gallops, no murmurs and no rubs Pulses: normal peripheral pulses GI Inspection: non-distended Palpation: soft, no hepatosplenomegaly, No guarding, No pulsatile mass and tender ( Bilateral lower abdomen) Auscultation: normal bowel sounds General: No CVA tenderness Neuro General: alert, oriented x3, gait normal and no focal motor deficits Speech: speech normal <Karena Duke DO - Last Filed: 09/16/18 22:30> Initial Vital Signs Initial Vital Signs: Vital Signs Temperature 99.5 F 09/15/18 13:34 Pulse Rate 88 09/15/18 13:34 Respiratory Rate 20 09/15/18 13:34 Blood Pressure 115/63 09/15/18 13:34 Pulse Oximetry 98 09/15/18 13:34 Course <SONIA Sabillon - Last Filed: 09/15/18 22:12> Orders Ordered: Discontinued Medications Ciprofloxacin (Cipro) 500 mg PO NOW ONE Stop: 09/15/18 19:45 Last Admin: 09/15/18 20:12 Dose: 500 mg Hydromorphone HCl (Dilaudid) 0.5 mg IV NOW ONE Stop: 09/15/18 17:44 Last Admin: 09/15/18 18:53 Dose: 0.5 mg Sodium Chloride (Normal Saline 0.9%) 1,000 mls @ 150 mls/hr IV CONT DANILO Last Infusion: 09/15/18 20:03 Dose: 0 mls/hr Admin: 09/15/18 15:53 Dose: 150 mls/hr Metronidazole (Metronidazole) 500 mg PO NOW ONE Stop: 09/15/18 19:45 Last Admin: 09/15/18 20:12 Dose: 500 mg Ondansetron HCl (Zofran) 4 mg IV NOW ONE Stop: 09/15/18 17:44 Last Admin: 09/15/18 18:53 Dose: 4 mg Vital Signs - 8 hr 09/15/18 14:31 09/15/18 17:00 09/15/18 19:00 Temperature 100.2 F H Pulse Rate 80 82 86 Respiratory Rate 16 16 Blood Pressure Blood Pressure [Right Arm] 110/63 107/61 108/65 Pulse Oximetry 96 95 94 09/15/18 20:00 Temperature 98.9 F Pulse Rate 80 Respiratory Rate 16 Blood Pressure 113/58 L Blood Pressure [Right Arm] Pulse Oximetry 99 <Karena Duke DO - Last Filed: 09/16/18 22:30> Orders Ordered: Discontinued Medications Ciprofloxacin (Cipro) 500 mg PO NOW ONE Stop: 09/15/18 19:45 Last Admin: 09/15/18 20:12 Dose: 500 mg Hydromorphone HCl (Dilaudid) 0.5 mg IV NOW ONE Stop: 09/15/18 17:44 Last Admin: 09/15/18 18:53 Dose: 0.5 mg Sodium Chloride (Normal Saline 0.9%) 1,000 mls @ 150 mls/hr IV CONT DANILO Last Infusion: 09/15/18 20:03 Dose: 0 mls/hr Admin: 09/15/18 15:53 Dose: 150 mls/hr Metronidazole (Metronidazole) 500 mg PO NOW ONE Stop: 09/15/18 19:45 Last Admin: 09/15/18 20:12 Dose: 500 mg Ondansetron HCl (Zofran) 4 mg IV NOW ONE Stop: 09/15/18 17:44 Last Admin: 09/15/18 18:53 Dose: 4 mg Vital Signs - 8 hr 09/15/18 14:31 09/15/18 17:00 09/15/18 19:00 Temperature 100.2 F H Pulse Rate 80 82 86 Respiratory Rate 16 16 Blood Pressure Blood Pressure [Right Arm] 110/63 107/61 108/65 Pulse Oximetry 96 95 94 09/15/18 20:00 Temperature 98.9 F Pulse Rate 80 Respiratory Rate 16 Blood Pressure 113/58 L Blood Pressure [Right Arm] Pulse Oximetry 99 MDM - Abdominal Pain <SONIA Sabillon - Last Filed: 09/15/18 22:12> Lab Data Result diagrams: 09/15/18 15:45 09/15/18 15:45 Lab Results 09/15/18 09/15/18 09/15/18 Range/Units 15:45 15:45 17:54 WBC 18.3 H (4.5-11.0) X10^3/uL RBC 4.22 (4.0-5.2) X10^6/uL Hgb 12.1 (12.0-16.0) g/dL Hct 36.7 (36-46) % MCV 86.9 (80-100) fL MCH 28.8 (26-34) PG MCHC 33.1 (30-36) % RDW 13.6 (11.6-14.8) % Plt Count 267 (150-400) X10^3/uL Neut % (Auto) 75.6 H (50-75) % Lymph % (Auto) 15.0 L (25-40) % Phillips % (Auto) 7.5 (3-14) % Eos % (Auto) 0.6 L (2-4) % Baso % (Auto) 1.3 (0-2) % Neut # (Auto) 11447 H (2610-1028) /uL Sodium 141 (137-145) mmol/L Potassium 4.0 (3.4-5.1) mmol/L Chloride 102 (98-107) mmol/L Carbon Dioxide 27 (22-32) mmol/L BUN 13 (7-17) mg/dL Creatinine 0.80 (0.52-1.04) mg/dL Estimated GFR > 60.0 (>60) mL/min BUN/Creatinine Ratio 16.3 (6-22) Glucose 87 (80-110) mg/dL Lactate (0.7-2.1) mmol/L Calcium 9.5 (8.4-10.2) mg/dL Total Bilirubin 0.5 (0.2-1.3) mg/dL AST 20 (14-36) IU/L ALT 21 (9-52) IU/L Alkaline Phosphatase 90 (38-126) U/L Total Protein 7.2 (6.3-8.2) g/dL Albumin 4.5 (3.5-5.0) g/dL Globulin 2.7 (1.7-4.1) g/dL Albumin/Globulin Ratio 1.7 (1.0-2.8) Lipase 20 L (23-300) U/L Procalcitonin < 0.05 (<0.5) ng/mL 09/15/18 Range/Units 17:54 WBC (4.5-11.0) X10^3/uL RBC (4.0-5.2) X10^6/uL Hgb (12.0-16.0) g/dL Hct (36-46) % MCV (80-100) fL MCH (26-34) PG MCHC (30-36) % RDW (11.6-14.8) % Plt Count (150-400) X10^3/uL Neut % (Auto) (50-75) % Lymph % (Auto) (25-40) % Phillips % (Auto) (3-14) % Eos % (Auto) (2-4) % Baso % (Auto) (0-2) % Neut # (Auto) (5939-0039) /uL Sodium (137-145) mmol/L Potassium (3.4-5.1) mmol/L Chloride (98-107) mmol/L Carbon Dioxide (22-32) mmol/L BUN (7-17) mg/dL Creatinine (0.52-1.04) mg/dL Estimated GFR (>60) mL/min BUN/Creatinine Ratio (6-22) Glucose (80-110) mg/dL Lactate < 0.5 L (0.7-2.1) mmol/L Calcium (8.4-10.2) mg/dL Total Bilirubin (0.2-1.3) mg/dL AST (14-36) IU/L ALT (9-52) IU/L Alkaline Phosphatase (38-126) U/L Total Protein (6.3-8.2) g/dL Albumin (3.5-5.0) g/dL Globulin (1.7-4.1) g/dL Albumin/Globulin Ratio (1.0-2.8) Lipase (23-300) U/L Procalcitonin (<0.5) ng/mL Point of care testing: Urine Dip Bedside Urine Glucose Negative Bedside Urine Bilirubin - Negative Bedside Urine Ketone - Negative Urine Specific [place] 1.015 Bedside Urine Occult Blood - Negative Bedside Urine pH 6.5 Bedside Urine Protein - Negative Bedside Urine Urobilinogen - Negative Bedside Urine Nitrite - Negative Bedside Urine Leukocytes - Negative Esterase Imaging Data CT scan - abdomen: Radiologist's impression: [address] [address] [address] Scan Report Signed Patient: Nivia Mancuso [facility]#: [id number] : 2Acct:[id number] Age/Sex: 68 / FDate of Service: 09/15/18 Loc: ED Accession Number: [id number] Procedure: CT abdomen pelvis w con Ordering Provider: Vitaliy Valerio PROCEDURE: CT ABDOMEN PELVIS W CON INDICATIONS: bilateral lower abdominal pain TECHNIQUE: After the administration of intravenous contrast, 5 mm thick sections acquired from the diaphragm to the symphysis. 5 mm coronal and sagittal reformats were acquired. For radiation dose reduction, the following was used: automated exposure control, adjustment of mA and/or kV according to patient size. COMPARISON: None. FINDINGS: Image quality: Excellent. ABDOMEN: Lung bases: Lung bases are clear. Heart size is normal. Solid organs: Liver is normal in size and enhancement. Gallbladder is surgically absent. There is trace intrahepatic biliary ductal dilatation. Pancreas enhances normally. Spleen is normal in size and enhancement. No adrenal nodules. Kidneys demonstrate normal size and enhancement, without hydronephrosis. Peritoneum and bowel: The stomach is decompressed. The small bowel demonstrates normal caliber and wall thickness. The appendix is not visualized; however there is no discrete right lower quadrant fluid or fat stranding to suggest acute appendicitis. The ascending, transverse, and descending colon demonstrate normal caliber and wall thickness. There are extensive diverticular outpouchings throughout the sigmoid colon. There is circumferential wall thickening of the mid and distal sigmoid colon with marked pericolonic fat stranding. No pneumoperitoneum or discrete fluid to suggest abscess. Nodes and vessels: No retroperitoneal or mesenteric adenopathy by size criteria. Aorta and inferior vena cava are normal in size. There are scattered atheromatous calcifications throughout the aorta and iliac arteries bilaterally. Miscellaneous: No ventral hernias. PELVIS: Genitourinary: Bladder wall thickness is normal. Miscellaneous: No inguinal hernias or adenopathy. Bones: No suspicious bony lesions. No vertebral body compression fractures. IMPRESSION: 1. Severe acute nonperforated diverticulitis. Given the extensive circumferential bowel wall thickening, colonoscopy is recommended after resolution of the patient's acute symptoms to ensure there is no underlying colonic neoplasm. These findings were discussed with SONIA Orellana at 6:34 PM on 09/15/18. Dictated by: Belkys Jose M.D. on 09/15/2018 at 18:43 Approved by: Belkys Jose M.D. on 09/15/2018 at 18:46 MDM Narrative Medical decision making narrative: CBC shows elevated white count of 18.7. And elevated neutrophils. Chem panel and procalcitonin and lactate were negative. due to elevated white count and fever blood cultures were obtained and are pending. a CT of the abdomen was obtained and shows signs of diverticulitis with significant circumferential bowel wall thickening with recommendation of for colonoscopy after symptoms resolve for further evaluation. patient states that it has been a long time since her last colonoscopy. She is prescribed ciprofloxacin and Flagyl for her symptoms along with small amount of [place] for pain and Zofran for nausea. Follow up with primary care provider in the next couple days for re-evaluation. Slowly advance diet as tolerated. For any worsening symptoms return to the emergency room. <Karena Duke, DO - Last Filed: 09/16/18 22:30> Lab Data Lab Results 09/15/18 09/15/18 09/15/18 Range/Units 15:45 15:45 17:54 WBC 18.3 H (4.5-11.0) X10^3/uL RBC 4.22 (4.0-5.2) X10^6/uL Hgb 12.1 (12.0-16.0) g/dL Hct 36.7 (36-46) % MCV 86.9 (80-100) fL MCH 28.8 (26-34) PG MCHC 33.1 (30-36) % RDW 13.6 (11.6-14.8) % Plt Count 267 (150-400) X10^3/uL Neut % (Auto) 75.6 H (50-75) % Lymph % (Auto) 15.0 L (25-40) % Phillips % (Auto) 7.5 (3-14) % Eos % (Auto) 0.6 L (2-4) % Baso % (Auto) 1.3 (0-2) % Neut # (Auto) 35763 H (6641-8168) /uL Sodium 141 (137-145) mmol/L Potassium 4.0 (3.4-5.1) mmol/L Chloride 102 (98-107) mmol/L Carbon Dioxide 27 (22-32) mmol/L BUN 13 (7-17) mg/dL Creatinine 0.80 (0.52-1.04) mg/dL Estimated GFR > 60.0 (>60) mL/min BUN/Creatinine Ratio 16.3 (6-22) Glucose 87 (80-110) mg/dL Lactate (0.7-2.1) mmol/L Calcium 9.5 (8.4-10.2) mg/dL Total Bilirubin 0.5 (0.2-1.3) mg/dL AST 20 (14-36) IU/L ALT 21 (9-52) IU/L Alkaline Phosphatase 90 (38-126) U/L Total Protein 7.2 (6.3-8.2) g/dL Albumin 4.5 (3.5-5.0) g/dL Globulin 2.7 (1.7-4.1) g/dL Albumin/Globulin Ratio 1.7 (1.0-2.8) Lipase 20 L (23-300) U/L Procalcitonin < 0.05 (<0.5) ng/mL 09/15/18 Range/Units 17:54 WBC (4.5-11.0) X10^3/uL RBC (4.0-5.2) X10^6/uL Hgb (12.0-16.0) g/dL Hct (36-46) % MCV (80-100) fL MCH (26-34) PG MCHC (30-36) % RDW (11.6-14.8) % Plt Count (150-400) X10^3/uL Neut % (Auto) (50-75) % Lymph % (Auto) (25-40) % Phillips % (Auto) (3-14) % Eos % (Auto) (2-4) % Baso % (Auto) (0-2) % Neut # (Auto) (7537-6989) /uL Sodium (137-145) mmol/L Potassium (3.4-5.1) mmol/L Chloride (98-107) mmol/L Carbon Dioxide (22-32) mmol/L BUN (7-17) mg/dL Creatinine (0.52-1.04) mg/dL Estimated GFR (>60) mL/min BUN/Creatinine Ratio (6-22) Glucose (80-110) mg/dL Lactate < 0.5 L (0.7-2.1) mmol/L Calcium (8.4-10.2) mg/dL Total Bilirubin (0.2-1.3) mg/dL AST (14-36) IU/L ALT (9-52) IU/L Alkaline Phosphatase (38-126) U/L Total Protein (6.3-8.2) g/dL Albumin (3.5-5.0) g/dL Globulin (1.7-4.1) g/dL Albumin/Globulin Ratio (1.0-2.8) Lipase (23-300) U/L Procalcitonin (<0.5) ng/mL Point of care testing: Urine Dip Bedside Urine Glucose Negative Bedside Urine Bilirubin - Negative Bedside Urine Ketone - Negative Urine Specific [place] 1.015 Bedside Urine Occult Blood - Negative Bedside Urine pH 6.5 Bedside Urine Protein - Negative Bedside Urine Urobilinogen - Negative Bedside Urine Nitrite - Negative Bedside Urine Leukocytes - Negative Esterase Discharge Plan Departure Patient Disposition: Home Clinical Impression: Diverticulitis Discharge Date/Time: 09/15/18 20:15 Interventions: ED Discharge Assessment Last Done: 09/15/18 20:00 Instructions: Diverticulitis Activity Restrictions/Additional Instructions: laboratory results show elevated white count and CT of the abdomen shows diverticulitis. you are prescribed antibiotics ciprofloxacin and metronidazole use as directed. small amount of [place] is prescribed for breakthrough pain not covered by Tylenol use as directed no driving while on the [place]. Zofran is prescribed to help with any nausea also use as directed. Slowly advance diet as tolerated. Follow up with primary care provider in the next couple of days for re-evaluation. CT shows significant wall thickening of the colon recommend colonoscopy after resolved of your symptoms now for further evaluation for any worsening symptoms return to the emergency room. Prescriptions: New hydrocodone-acetaminophen [[place]] 5-325 mg tablet 1 tab PO Q4-6H PRN (Reason: pain) Qty: 15 RF: 0 metronidazole 500 mg tablet 500 mg PO TID Qty: 21 RF: 0 ciprofloxacin HCl 500 mg tablet 500 mg PO BID Qty: 14 RF: 0 ondansetron 4 mg tablet,disintegrating 4 mg PO BID-TID PRN (Reason: nausea and vomiting) Qty: 10 RF: 0 No Action cholecalciferol (vitamin D3) 5,000 UNIT capsule 1 cap PO QDAY Qty: 0 RF: 0 cyanocobalamin (vitamin B-12) [Vitamin B-12] 50 MCG tablet 2 tab PO QDAY Qty: 0 RF: 0 albuterol sulfate 2.5 MG/3 ML solution for nebulization 3 ml INH X1 Qty: 1 RF: 0 atorvastatin 40 mg tablet 40 mg PO HS Qty: 90 RF: 3 citalopram 20 mg tablet 40 mg PO QDAY Qty: 180 RF: 3 dicyclomine 10 mg capsule 10 mg PO BID Qty: 180 RF: 3 lisinopril 20 mg tablet 20 mg PO QDAY Qty: 90 RF: 3 trazodone 50 mg tablet 50 mg PO HS Qty: 90 RF: 3 levothyroxine 75 mcg tablet 1 tab PO SUTUWEFRSA RF: 0 levothyroxine [Synthroid] 75 mcg tablet 2 tab PO MOTH RF: 0 lorazepam 1 MG tablet 1 mg PO BIDP PRN (Reason: Anxiety) RF: 0 Referrals: Ebony Rachel DO [Primary Care Provider] - <Karena Duke DO - Last Filed: 09/16/18 22:30> Cosign ED Attending Cosignature Attestation: I was immediately available in the department for consultation. Documentation has been reviewed. I agree with assessment and plan.
[2018-09-15 17:00] VITALS: BP 107/61; PULSE 82; O2SAT 95
--- NOTE | 2018-09-15 17:42 | DI.CT.S_ITS ---
PROCEDURE: CT ABDOMEN PELVIS W CON INDICATIONS: bilateral lower abdominal pain TECHNIQUE: After the administration of intravenous contrast, 5 mm thick sections acquired from the diaphragm to the symphysis. 5 mm coronal and sagittal reformats were acquired. For radiation dose reduction, the following was used: automated exposure control, adjustment of mA and/or kV according to patient size. COMPARISON: None. FINDINGS: Image quality: Excellent. ABDOMEN: Lung bases: Lung bases are clear. Heart size is normal. Solid organs: Liver is normal in size and enhancement. Gallbladder is surgically absent. There is trace intrahepatic biliary ductal dilatation. Pancreas enhances normally. Spleen is normal in size and enhancement. No adrenal nodules. Kidneys demonstrate normal size and enhancement, without hydronephrosis. Peritoneum and bowel: The stomach is decompressed. The small bowel demonstrates normal caliber and wall thickness. The appendix is not visualized; however there is no discrete right lower quadrant fluid or fat stranding to suggest acute appendicitis. The ascending, transverse, and descending colon demonstrate normal caliber and wall thickness. There are extensive diverticular outpouchings throughout the sigmoid colon. There is circumferential wall thickening of the mid and distal sigmoid colon with marked pericolonic fat stranding. No pneumoperitoneum or discrete fluid to suggest abscess. Nodes and vessels: No retroperitoneal or mesenteric adenopathy by size criteria. Aorta and inferior vena cava are normal in size. There are scattered atheromatous calcifications throughout the aorta and iliac arteries bilaterally. Miscellaneous: No ventral hernias. PELVIS: Genitourinary: Bladder wall thickness is normal. Miscellaneous: No inguinal hernias or adenopathy. Bones: No suspicious bony lesions. No vertebral body compression fractures. IMPRESSION: 1. Severe acute nonperforated diverticulitis. Given the extensive circumferential bowel wall thickening, colonoscopy is recommended after resolution of the patient's acute symptoms to ensure there is no underlying colonic neoplasm. These findings were discussed with SONIA Orellana at 6:34 PM on 09/15/18. Dictated by: Belkys Jose M.D. on 09/15/2018 at 18:43 Approved by: Belkys Jose M.D. on 09/15/2018 at 18:46
[2018-09-15 18:25] LABS: Lactate (Lactic Acid) < 0.5 mmol/L (0.7-2.1)
[2018-09-15 18:39] LABS: Procalcitonin < 0.05 ng/mL (<0.5)
[2018-09-15] MEDS: HYDROMORPHONE 1 MG INJ 0.5 MG IV (18:53)
[2018-09-15] MEDS: ONDANSETRON 4 MG/2 ML INJ IV (18:53)
[2018-09-15 19:00] VITALS: BP 108/65; PULSE 86; RESP 16; O2SAT 94
[2018-09-15 20:00] VITALS: BP 113/58; PULSE 80; RESP 16; TEMP 37.2; O2SAT 99
[2018-09-15] MEDS: metroNIDAZOLE 250 MG TABLET 500 MG PO (20:12)
[2018-09-15] MEDS: CIPROFLOXACIN 500 MG TABLET PO (20:12)
== END 2018-09-15 20:15 | disposition home or self-care (01) ==
PROVIDERS: Emergency Medicine; Emergency Provider Nurse Practitioner Family; PCP Family Medicine
DX: K57.92 Diverticulitis of intestine, part unspecified, without perforation or abscess without bleeding (principal)
CPT/HCPCS: 36415; 36591; 74177; 80053; 81003; 83605; 83690; 84145; 85025; 87040; 96361; 96374; 96375; 99283; 99284; J1170; J2405; Q9967

== ENCOUNTER 2018-11-27 09:08 | Day surgery (SDC) | payer MEDICARE, OTHER, SELFPAY ==
--- NOTE | 2018-11-27 | PATH_ITS ---
[facility] Accession Number: [id number] . 01 Material submitted: . COLON POLYP AT 60CM . 02 Diagnosis: Biopsy, Colon Polyp at 60 cm: Tubular adenoma involving single biopsy fragment. MRV/12/01/2018 . 02 Electronically signed: . Trevin Salas MD, Pathologist NPI- [id number] . 01 Gross description: . Received in formalin, labeled Nivia Mancuso, colon polyp at 60 cm, are two goodwin tissues averaging 0.3 x 0.2 x 0.2 cm. Submitted intact as A1. A1 is two pieces. (SB:[id number]) /MRV . 02 Pathologist provided ICD-10: D12.3 . 02 CPT . 696272 Performed at: 01 [facility] [address] [place] [address], [place], [place] [id number] MD Carlos Merritt MD Phone: [phone] Performed at: 02 [facility] [place] [address] [place], [place] [id number] MD Jany Adams MD Phone: [phone]
[2018-11-27 09:28] VITALS: BP 98/59; PULSE 78; RESP 16; TEMP 36.3; O2SAT 96; BMI 29.1
--- NOTE | 2018-11-27 11:25 | P.HP_ITS ---
History of Present Illness Date Patient Seen: 11/27/18 Time Patient Seen: 11:24 Chief complaint: COLONOSCOPY [id number] Narrative: Nivia is a wonderful 68-year-old lady who presents today for colonoscopy. I saw her in the office about 6 weeks ago. She recently had fairly severe episode of diverticulitis and CT scan shows some thickening in the sigmoid colon. She thinks it has been more than 10 years since her last colonoscopy Patient History Medical History Anxiety (Chronic ~2014) Carpal tunnel syndrome (Chronic ~2009) Chronic back pain (Chronic ~1989) Chronic cough (Chronic ~2016) Degenerative disc disease, lumbar (Chronic ~1994) Depression (Chronic ~1989) Foot pain (Chronic ~2011) Hay fever (Chronic ~1974) Irritable bowel syndrome (Chronic ~1999) Recurrent sinusitis (Chronic ~1974) Sleep apnea (Chronic ~2000) Chicken pox (Resolved ~1954) Measles (Resolved ~1954) Mumps (Resolved ~1954) Rheumatic fever (Resolved ~1958) Surgical History History of carpal tunnel repair (~2000) History of carpal tunnel repair (~2016) History of spinal fusion Status post breast reduction Status post cholecystectomy Status post hysterectomy Family & Social History Family History: Reviewed 11/27/18 by Gloria Gracia MD Social History: household members children Tobacco & Substance use: Smoking Status Current every day smoker Substance Use Type marijuana Meds Home Medications Medication Instructions Recorded Confirmed Type cholecalciferol (vitamin D3) 1 cap PO QDAY #0 09/20/17 11/27/18 History cyanocobalamin (vitamin B-12) 2 tab PO QDAY #0 09/20/17 11/27/18 History [Vitamin B-12] albuterol sulfate 3 ml INH X1 #1 ea 09/21/17 11/27/18 Rx atorvastatin 40 mg tablet 40 mg PO HS #90 tab 05/16/18 11/27/18 Rx citalopram 20 mg tablet 40 mg PO QDAY #180 tab 05/16/18 11/27/18 Rx dicyclomine 10 mg capsule 10 mg PO BID #180 cap 05/16/18 11/27/18 Rx lisinopril 20 mg tablet 20 mg PO QDAY #90 tab 05/16/18 11/27/18 Rx trazodone 50 mg tablet 50 mg PO HS #90 tab 05/16/18 11/27/18 Rx hydrocodone-acetaminophen [[place]] 1 tab PO Q4-6H PRN #15 tab 09/15/18 11/27/18 Rx levothyroxine 1 tab PO SUTUWEFRSA 09/15/18 11/27/18 History levothyroxine [Synthroid] 2 tab PO 2XW 09/15/18 11/27/18 History lorazepam 1 mg PO BIDP PRN 09/15/18 11/27/18 History ondansetron 4 mg PO BID-TID PRN #10 tab 09/15/18 11/27/18 Rx azithromycin 250 mg tablet See Label Instructions PO .COMPLEX 11/14/18 11/27/18 Rx #6 tab Allergies Allergy/AdvReac Type Severity Reaction Status Date / Time Sulfa (Sulfonamide Allergy Severe SWELL UP Verified 09/25/18 10:00 Antibiotics) morphine Allergy Unknown Not Verified 09/25/18 10:00 allergic - patient doesn't want it. oxycodone [OXYCODONE] AdvReac Intermediate Verified 11/27/18 09:28 Review of Systems Review of Systems All systems reviewed & are unremarkable except as noted in HPI and below Exam Vital Signs (past 8 hours): - 11/27/18 09:28 Temperature 97.3 F L Pulse Rate 78 Respiratory Rate 16 Blood Pressure 98/59 L Pulse Oximetry 96 Oxygen Delivery Method Room Air Narrative Exam Narrative: Very pleasant lady in no obvious distress. She denies abdominal pain today. HEENT: Normocephalic and atraumatic, pupils equal round reactive to light accommodation with anicteric sclera Lungs: Clear bilaterally Heart: Regular rate and rhythm Abdomen: Soft, nontender, active bowel sounds Extremities: Warm well perfused and without edema. Assessment & Plan Plan: Assessment/Plan Narrative: Very pleasant 68-year-old lady with a recent episode of fairly severe diverticulitis which is fortunately subsided. We discussed risks and benefits of colonoscopy and she is here to completed today.
[2018-11-27] MEDS: SODIUM CHLORIDE 0.9% 1,000 ML 84 ML IV (11:48)
[2018-11-27] MEDS: fentaNYL 250 MCG/5 ML INJ IV (11:50)
[2018-11-27] MEDS: MIDAZOLAM 5 MG/5 ML VIAL IV (11:50)
[2018-11-27 12:03] VITALS: BP 119/78; PULSE 93; RESP 20; TEMP 36.6; O2SAT 91
--- NOTE | 2018-11-27 12:03 | PM.OP.1 ---
Operative Date/Time/Diagnoses Date of procedure: 11/27/18 Time of procedure: 12:03 Pre-op diagnosis: Diverticulitis Screening Post-op diagnosis: same Procedure & Clinicians Procedure: Colonoscopy to cecum with polypectomy x1 Same procedure as scheduled: Yes Indications: Last colonoscopy about 10 years ago Surgeon: Gloria Gracia Anesthesia Type: Sedation (Versed 6 mg; fentanyl 250 mcg) Operative Notes Findings: 1. Adequate prep 2. A single 3 mm polyp at 60 cm from the anal verge 3. Diverticulosis limited to the sigmoid region with large and small takes and false passages. No evidence of acute inflammation or stricture 4. Otherwise normal mucosa 5. Grade 2 internal hemorrhoids Closure Type: not applicable Specimen(s): other (Polyp at 60 cm) Estimated Blood Loss (mL): 1 Procedure in detail: After obtaining informed consent, the patient was brought to the GI suite and placed in the left lateral decubitus position on the examination table. After placement of appropriate monitors, the patient was given incremental doses of Versed and Fentanyl until an appropriate level of sedation was achieved. A time out was held per SCOAP protocol. A digital rectal examination was performed and did not reveal any masses or obstructing lesions. The colonoscope was gently passed into the patient's anus and the entire colon navigated to the level of the cecum with minimal difficulty. Once in the cecum, the scope was withdrawn being sure to go before and beyond all mucosal folds and prominences and get an excellent examination. The findings are noted above. At the level of the rectal vault, the scope was retroflexed and the internal anal canal was examined. The scope was straightened and air aspirated from the colon. The instrument was removed from the patient's body and the procedure was concluded. The patient was allowed to awaken from sedation without difficulty and taken to the post-anesthesia care unit in good condition. Total sedation time was 30 min Total withdrawal time was 22 min Complications: none Condition: stable Disposition: PACU Plan for aftercare: 1. Discharge to home 2. We will contact you with pathology results and recommendations 3. Tentatively plan for repeat colonoscopy in 5 years or as clinically indicated
[2018-11-27 12:09] VITALS: BP 114/63; PULSE 88; RESP 11; O2SAT 95
[2018-11-27 12:16] VITALS: BP 117/61; PULSE 92; RESP 16; O2SAT 95
[2018-11-27 12:23] VITALS: BP 108/63; PULSE 88; RESP 16; TEMP 36.6; O2SAT 95
[2018-11-27 12:34] VITALS: BP 98/65; PULSE 80; TEMP 36.3; O2SAT 95
--- NOTE | 2018-11-27 12:42 | SUR.PHASEII ---
Pt reported vomiting in the bathroom. Requested to d/c. Skin pink. Coffee provided.
== END 2018-11-27 12:42 | disposition home or self-care (01) ==
PROVIDERS: PCP Family Medicine; Visit Provider Surgery
PROC: 0DJD8ZZ Inspection of Lower Intestinal Tract, Via Natural or Artificial Opening Endoscopic (ICD-10-PCS; CPT 45378; principal; 2018-11-27 11:45)
DX: Z87.19 Personal history of other diseases of the digestive system (principal); R93.3 Abnormal findings on diagnostic imaging of other parts of digestive tract; F41.9 Anxiety disorder, unspecified; G47.33 Obstructive sleep apnea (adult) (pediatric); K57.30 Diverticulosis of large intestine without perforation or abscess without bleeding; K64.1 Second degree hemorrhoids; K63.5 Polyp of colon
CPT/HCPCS: 45380; 88305; 99152; 99153; J2250; J3010

== ENCOUNTER → 2019-04-06 08:15 | Outpatient (CLI) | payer MEDICARE, OTHER, SELFPAY ==
[2019-04-06 10:37] LABS: Glucose 103 mg/dL (80-110); HDL Cholesterol 60 mg/dL (40-60); Triglycerides 199 mg/dL (35-150)
[2019-04-06 10:54] LABS: Cholesterol 339 mg/dL (140-199); LDL Cholesterol Calculated 239 mg/dL (<100)
== END ==
PROVIDERS: Visit Provider Family Medicine
DX: E03.9 Hypothyroidism, unspecified (principal); I10 Essential (primary) hypertension; Z13.6 Encounter for screening for cardiovascular disorders
CPT/HCPCS: 36415; 80061; 82947

== ENCOUNTER → 2019-05-11 15:57 | Outpatient (CLI) | payer MEDICARE, OTHER, SELFPAY ==
--- NOTE | 2019-05-11 15:59 | DI.RAD.S_ITS ---
PROCEDURE: XR SHOULDER RT MIN 2V INDICATIONS: right shoulder pain x18 months TECHNIQUE: 3 views of the shoulder were acquired. COMPARISON: [facility], , CHEST 2 VIEW, 12/04/2012, 15:15. [facility], , CHEST 2 VIEW, 12/25/2012, 9:46. [facility], , CHEST 2 VIEW, 09/10/2013, 12:22. FINDINGS: Bones: No fractures or dislocations but there is moderate degenerative osteophytic change at the a.c. joint and to a lesser degree a slight degree of osteoarthritis can be seen at the glenohumeral joint. Calcific bursitis/tendinitis is present at the lateral border of the expected position of the supraspinatus tendon.. No suspicious bony lesions. Visualized ribs appear intact. Soft tissues: No suspicious soft tissue calcifications. IMPRESSION: No acute trauma found. Moderate osteoarthritis a.c. joint. Calcific tendinitis or bursitis lateral border of the normal course of the supraspinatus tendon. Dictated by: Bassem Mejia M.D. on 05/11/2019 at 16:39 Approved by: Bassem Mejia M.D. on 05/11/2019 at 16:40
== END ==
PROVIDERS: PCP Family Medicine; Visit Provider Family Medicine
DX: M25.511 Pain in right shoulder (principal); M19.011 Primary osteoarthritis, right shoulder; M75.31 Calcific tendinitis of right shoulder
CPT/HCPCS: 73030

== ENCOUNTER 2019-06-10 07:49 | Day surgery (SDC) | payer MEDICARE, OTHER, SELFPAY ==
--- NOTE | 2019-06-07 15:38 | PM.PREOP ---
Pre-operative Note Interval Note History & Physical reviewed/Exam performed by Physician: Yes Changes to H&P: No
--- NOTE | 2019-06-07 15:39 | PM.OP.1 ---
Operative Date/Time/Diagnoses Date of procedure: 06/10/19 Time of procedure: 08:45 Procedure & Clinicians Procedure: Preoperative diagnoses: 1. Left nuclear and advanced cortical sclerotic and cortical cataract. 2. Depression Postoperative diagnoses: 1. Cataract removed by phacoemulsification with placement of posterior chamber intraocular lens. Procedure: Phacoemulsification with posterior chamber intraocular lens implant Surgeon: Kellee Medina MD Complications: None Specimen: None Implant: ZCBOO+21.5 Blood loss: None Anesthesia: Retrobulbar with monitored standby Description of procedure: Patient presents with a complaint of decreased vision due to cataract across the central visual axis which is affecting activities of daily living. The patient wants surgery to improve vision. The patient was taken to the operating room and given IV sedation. A retrobulbar block insert consisting of 6 cc of 2% xylocaine without epinephrine mixed half and half with 0.5% Marcaine with 1 cc of hyaluronidase added is placed between the medial and lateral 1/3 of the inferior orbital rim. Lid akinesia is obtain with 1% xylocaine with epinephrine infiltrated along the lid margin. The eye is manually massaged for 30 sec, prepped using Betadine solution, and draped in the usual sterile fashion. Temporal approach was made, a 1 mm side-port incision was made 90? from the proposed clear corneal incision position. Phenylephrine 1.5% mixed with 1% xylocaine 0.2 cc was placed into the anterior chamber. Viscoat followed by Jaydeon was then placed. A 2.6 mm clear incision with a 2.6 mm blade was placed. A 360 degree capsulorrhexis style capsulotomy was then performed with a cystitome needle on a Healon. Hydrodelineation and hydrodissection were performed. The phacoemulsification unit is introduced, and sculpting notice used to groove the central lens. It is then removed in chopping mode. Epi nucleus is removed with epinuclear mode and irrigation aspiration was used to remove the peripheral cortex. The posterior capsule is polished. The intraocular lens is selected, inspected, power confirmed, and placed in the posterior chamber. The pupil was constricted with Miostat.. The wound was stromally hydrated and tested for leaks, there was none and it was left sutureless. Vigamox 0.1 cc was placed into the anterior chamber. Kenalog 0.2 cc was placed in the superior subconjunctival space. A drop of antibiotic and was placed and the eye was patched and shielded. The patient was stable and returned to the recovery room in excellent condition. Dictated by: Kellee Medina MD Copy to: [facility]
[2019-06-10 08:16] VITALS: BP 100/59; PULSE 72; RESP 15; TEMP 36; O2SAT 95; BMI 31.4
[2019-06-10] MEDS: PROPARACAINE 0.5% OPHTH SOL 2 DROPS EYE-OP (08:27)
[2019-06-10] MEDS: CATARACT EYE COMPOUND (10 DROPS/SYRINGE) 3 DROPS EYE-OP ×3 (08:29→08:45)
--- NOTE | 2019-06-10 08:35 | SUR.OPER ---
Supine on eye stretcher, head on extension cradle secured with tape. Arms tucked at sides with blanket. Pillow under knees.
[2019-06-10] MEDS: ERYTHROMYCIN OPHTH 1 GM OINT 1 APPLIC EYE-LEFT ×2 (09:15→09:25)
[2019-06-10] MEDS: LIDOCAINE 1% W/EPI INJ 20 ML INJ (09:15)
[2019-06-10] MEDS: MOXIFLOXACIN OPHTH DROPS 3 ML BOTTLE 2 DROPS INJ ×2 (09:18→09:19)
[2019-06-10] MEDS: TRIAMCINOLONE 50 MG/5 ML VIAL INJ (09:19)
[2019-06-10] MEDS: CHONDROIDTIN/SOD HYALURONATE 1.05 ML SYRINGE INTRAOCULA (09:20)
[2019-06-10] MEDS: BALANCED SALT IRRIG SOLN NO.2 15 ML IRR ×2 (09:20→09:21)
[2019-06-10] MEDS: HYALURONATE SODIUM 10 MG/ML SYRINGE INJ ×2 (09:21)
[2019-06-10] MEDS: CARBACHOL 1.5 ML VIAL INJ (09:22)
[2019-06-10] MEDS: OFLOXACIN 0.3% OPHTH 5 ML 2 DROPS EYE-LEFT (09:22)
[2019-06-10] MEDS: LIDOCAINE 2% INJ SDV 5 ML INJ (09:23)
[2019-06-10] MEDS: BALANCED SALT IRRIG SOLN NO.2 500 ML, EPINEPHrine 1 MG IRR (09:24)
[2019-06-10 09:51] VITALS: BP 110/60; PULSE 62; RESP 15; TEMP 36.5; O2SAT 96
[2019-06-10] MEDS: LIDOCAINE 2% 4 ML, BUPIVACAINE 0.5% (PF) 4 ML, HYALURONIDASE 150 UNIT INJ (11:30)
== END 2019-06-10 10:05 | disposition home or self-care (01) ==
LOC: OR 07:52
PROVIDERS: PCP Family Medicine; Visit Provider Ophthalmology
PROC: (CPT 66984; principal; 2019-06-10 08:45)
DX: H25.812 Combined forms of age-related cataract, left eye (principal); F32.9 Major depressive disorder, single episode, unspecified
CPT/HCPCS: 66984; J0171; J2250; J2704; J3301; J3470

== ENCOUNTER 2019-06-24 06:47 | Day surgery (SDC) | payer MEDICARE, OTHER, SELFPAY ==
--- NOTE | 2019-06-22 19:12 | PM.PREOP ---
Pre-operative Note Interval Note History & Physical reviewed/Exam performed by Physician: Yes Changes to H&P: No
--- NOTE | 2019-06-22 19:12 | PM.OP.1 ---
Operative Date/Time/Diagnoses Date of procedure: 06/24/19 Time of procedure: 07:45 Procedure & Clinicians Procedure: Preoperative diagnoses: 1. Right nuclear sclerotic and cortical cataract. Postoperative diagnoses: 1. Right phacoemulsification surgery with placement of a posterior chamber intraocular lens implant. Surgeon: Kellee Medina MD Complications: none Specimen: None Implant: ZCBOO+21.5 Blood loss: None Anesthesia: Retrobulbar with monitored standby. Description of procedure: Dictated by: Kellee Medina MD Copy to: [facility] Post operative diagnoses: 1. Right cataract removed with placement of a posterior chamber intraocular lens. Procedure: Phacoemulsification with posterior chamber intraocular lens implant Surgeon: Kellee Medina MD Blood loss: None Anesthesia: Retrobulbar with monitored standby Description of procedure: Patient has presented with decreased vision for reading and distance due to cataract which is affecting activities of daily living. She wants surgery to improve vision. The patient was taken to the operating room and given IV sedation. A retrobulbar block consisting of 6 cc of 2% xylocaine without epinephrine mixed half and half with 0.5% Marcaine with 1 cc of hyaluronidase added is placed between the medial and lateral 1/3 of the inferior orbital rim. Lid akinesia is obtain with 1% xylocaine with epinephrine infiltrated along the lid margin. The eye is manually massaged for 30 sec, prepped using Betadine solution, and draped in the usual sterile fashion. Temporal approach was made, a 1 mm side-port incision was performed 90 degrees from the planned corneal wound. Phenylephrine 1.5% mixed with 1% xylocaine 0.2 cc was placed into the anterior chamber. Viscoat followed by Gabriela was then placed. A 2.6 mm clear incision with a 2.6 mm blade was placed. A 360 degree capsulorrhexis style capsulotomy was then performed with a cystitome needle on a Healon. Hydrodelineation and hydrodissection were performed. The phacoemulsification unit is introduced, and sculpting used to groove the central lens. It is then removed in chopping mode. Epi nucleus is removed with epinuclear mode and irrigation aspiration was used to remove the peripheral cortex. The posterior capsule is polished. The intraocular lens is selected, inspected, power confirmed, and placed in the posterior chamber. The pupil was constricted with Miostat. The wound was stromally hydrated and tested for leaks, there was none and was left sutureless. Vigamox 0.1 cc was placed into the anterior chamber. Kenalog 0.2 cc was placed in the superior subconjunctival space. A drop of antibiotic and was placed and the eye was patched and shielded. The patient was stable and returned to the recovery room in excellent condition. Dictated by: Kellee Medina MD Copy to: [facility]
[2019-06-24] MEDS: PROPARACAINE 0.5% OPHTH SOL 2 DROPS EYE-OP (07:04)
[2019-06-24] MEDS: CATARACT EYE COMPOUND (10 DROPS/SYRINGE) 3 DROPS EYE-OP (07:08)
[2019-06-24 07:09] VITALS: BMI 31.6
[2019-06-24 07:14] VITALS: BP 95/58; PULSE 68; RESP 15; TEMP 36.3; O2SAT 97
[2019-06-24] MEDS: PHENYLEPHRINE/LIDOCAINE VIAL (OR) 0.2 ML EYE-OP (08:12)
[2019-06-24] MEDS: MOXIFLOXACIN OPHTH DROPS 3 ML BOTTLE 2 DROPS INJ (08:13)
[2019-06-24] MEDS: TRIAMCINOLONE 50 MG/5 ML VIAL INJ (08:14)
[2019-06-24] MEDS: CHONDROIDTIN/SOD HYALURONATE 1.05 ML SYRINGE INTRAOCULA (08:15)
[2019-06-24] MEDS: ERYTHROMYCIN OPHTH 1 GM OINT 1 APPLIC EYE-RIGHT ×2 (08:16→08:18)
[2019-06-24] MEDS: BALANCED SALT IRRIG SOLN NO.2 15 ML IRR (08:16)
[2019-06-24] MEDS: HYALURONATE SODIUM 10 MG/ML SYRINGE INJ (08:16)
[2019-06-24] MEDS: BALANCED SALT IRRIG SOLN NO.2 500 ML, EPINEPHrine 1 MG IRR (08:17)
[2019-06-24] MEDS: CARBACHOL 1.5 ML VIAL INJ (08:18)
[2019-06-24] MEDS: OFLOXACIN 0.3% OPHTH 5 ML 2 DROPS EYE-RIGHT (08:19)
[2019-06-24] MEDS: LIDOCAINE 1% W/EPI INJ 20 ML INJ (08:20)
[2019-06-24] MEDS: LIDOCAINE 2% 4 ML, BUPIVACAINE 0.5% (PF) 4 ML, HYALURONIDASE 150 UNIT INJ (08:21)
[2019-06-24 08:43] VITALS: BP 103/66; PULSE 70; RESP 16; TEMP 36.4; O2SAT 96
== END 2019-06-24 08:58 | disposition home or self-care (01) ==
LOC: OR 06:50
PROVIDERS: PCP Family Medicine; Visit Provider Ophthalmology
PROC: (CPT 66984; principal; 2019-06-24 07:45)
DX: H25.812 Combined forms of age-related cataract, left eye (principal)
CPT/HCPCS: 66984; J0171; J2250; J2704; J3010; J3301; J3470

== ENCOUNTER → 2019-07-07 12:47 | Outpatient (CLI) | payer MEDICARE, OTHER, SELFPAY | PROVIDERS: PCP Family Medicine; Visit Provider Family Medicine | DX: E03.9 Hypothyroidism, unspecified (principal) | CPT/HCPCS: 36415; 84443 ==

== ENCOUNTER → 2019-08-12 10:12 | Outpatient (CLI) | payer MEDICARE, OTHER, SELFPAY ==
[2019-08-12 11:04] LABS: Add Manual Diff / Slide Review NO; Basophils Absolute Auto 0 /uL (0-100); Basophils Percent Auto 0.5 % (0-2); Eosinophils Absolute Auto 100 /uL (0-450); Eosinophils Percent Auto 1.6 % (2-4); Hematocrit 37.7 % (36-46); Hemoglobin 12.3 g/dL (12.0-16.0); Lymphocytes Absolute Auto 2600 /uL (1100-4500); Lymphocytes Percent Auto 30.7 % (25-40); Mean Corpuscular HGB Conc 32.6 % (30-36); Mean Corpuscular Hemoglobin 28.8 PG (26-34); Mean Corpuscular Volume 88.3 fL (80-100); Monocytes Absolute Auto 600 /uL (0-900); Monocytes Percent Auto 7.2 % (3-14); Neutrophils Absolute Auto 5000 /uL (1500-7000); Platelet Count 277 X10^3/uL (150-400); Red Blood Cell Count 4.27 X10^6/uL (4.0-5.2); Red Cell Distribution Width 13.8 % (11.6-14.8); White Blood Cell Count 8.3 X10^3/uL (4.5-11.0)
[2019-08-12 11:22] LABS: Alanine Aminotransferase 11 IU/L (9-52); Albumin 4.3 g/dL (3.5-5.0); Albumin Globulin Ratio 1.8 (1.0-2.8); Alkaline Phosphatase 100 U/L (38-126); Aspartate Aminotransferase 21 IU/L (14-36); Bilirubin Total 0.3 mg/dL (0.2-1.3); Blood Urea Nitrogen 12 mg/dL (7-17); Calcium 9.8 mg/dL (8.4-10.2); Carbon Dioxide 24 mmol/L (22-32); Chloride 105 mmol/L (98-107); Estimated Glomerular Filt Rate 55.3 mL/min (>60); Globulin 2.4 g/dL (1.7-4.1); Glucose 99 mg/dL (80-110); HEMOLYSIS < 15 (0-50); Potassium 4.2 mmol/L (3.4-5.1); Sodium 138 mmol/L (137-145); Total Protein 6.7 g/dL (6.3-8.2)
== END ==
PROVIDERS: PCP Family Medicine; Visit Provider Hospitalist
DX: R53.83 Other fatigue (principal)
CPT/HCPCS: 36415; 80053; 85025

== ENCOUNTER → 2019-09-04 14:55 | Outpatient (CLI) | payer MEDICARE, OTHER, SELFPAY ==
--- NOTE | 2019-09-11 16:00 | PM.PFT.1 ---
Pulmonary Function Test Referral & Results Date Patient Seen: 09/04/19 Requesting provider: Ebony Rachel Results: The spirometry demonstrates an FVC of 2.74 L which is 88% of predicted. The FEV1 was measured at 2.15 L which is 91% of predicted. The FEV1/FVC ratio was 78 which is 101% of predicted. Following the administration of bronchodilator there was no appreciable change. Lung volumes show an SVC of 2.60 L which is 88% of predicted. The diffusing capacity was measured at 16.76 which is 69% of predicted. No hemoglobin value was provided, so no correction for potential anemia could be made, if appropriate. The maximum voluntary ventilation was minimally reduced Interpretation: This study demonstrates normal spirometry and minimally reduced diffusing capacity suggesting some element of disease at the capillary alveolar level Clinical correlation suggested
== END ==
PROVIDERS: PCP Family Medicine; Visit Provider Family Medicine
DX: R06.02 Shortness of breath (principal); R53.83 Other fatigue
CPT/HCPCS: 94060; 94726; 94729

== ENCOUNTER → 2019-12-22 06:40 | Outpatient (CLI) | payer MEDICARE, OTHER, SELFPAY ==
--- NOTE | 2019-12-22 06:56 | DI.CT.S_ITS ---
PROCEDURE: CT SINUS SCREEN WO CON INDICATIONS: Chronic sinus disease TECHNIQUE: Noncontrast 3.0 mm axial images acquired from the frontal sinuses to the mid-sella, with coronal and sagittal reformats. For radiation dose reduction, the following was used: automated exposure control, adjustment of mA and/or kV according to patient size. COMPARISON: [facility], CT, SINUS SCREEN WO CONTRAST, 03/19/2013, 11:46. FINDINGS: Image quality: Excellent. Maxillary Sinuses: No bony remodeling or destruction. Sinuses are clear. Ethmoid Air Cells: No bony remodeling or destruction. Sinuses are clear. Sphenoid Sinuses: No bony remodeling or destruction. Sinuses are clear. Frontal Sinuses: No bony remodeling or destruction. Sinuses are clear. Ostiomeatal Complexes: Ostiomeatal complexes are patent. Small sub-5 mm Narendra cells bilaterally. Miscellaneous: Visualized intra-orbital contents are normal. Right vega bullosa. Minimal leftward nasal septal deviation. IMPRESSION: Clear sinuses Right vega bullosa Dictated by: Colt Sheffield M.D. on 12/22/2019 at 9:45 Approved by: Colt Sheffield M.D. on 12/22/2019 at 9:50
== END ==
PROVIDERS: PCP Family Medicine; Visit Provider Family Medicine
DX: J32.0 Chronic maxillary sinusitis (principal); J34.89 Other specified disorders of nose and nasal sinuses; J30.2 Other seasonal allergic rhinitis; R09.81 Nasal congestion; Z77.22 Contact with and (suspected) exposure to environmental tobacco smoke (acute) (chronic)
CPT/HCPCS: 70486

== ENCOUNTER → 2020-07-20 09:11 | Outpatient (CLI) | payer MEDICARE, OTHER, SELFPAY ==
[2020-07-20 10:04] LABS: Add Manual Diff / Slide Review NO; Basophils Absolute Auto 0 /uL (0-100); Basophils Percent Auto 0.4 % (0-2); Eosinophils Absolute Auto 100 /uL (0-450); Eosinophils Percent Auto 0.8 % (2-4); Hematocrit 37.7 % (36-46); Hemoglobin 12.5 g/dL (12.0-16.0); Lymphocytes Absolute Auto 2500 /uL (1100-4500); Lymphocytes Percent Auto 27.6 % (25-40); Mean Corpuscular HGB Conc 33.2 % (30-36); Mean Corpuscular Hemoglobin 28.3 PG (26-34); Mean Corpuscular Volume 85.4 fL (80-100); Monocytes Absolute Auto 600 /uL (0-900); Monocytes Percent Auto 6.7 % (3-14); Neutrophils Absolute Auto 5800 /uL (1500-7000); Neutrophils Percent Auto 64.5 % (50-75); Platelet Count 247 X10^3/uL (150-400); Red Blood Cell Count 4.42 X10^6/uL (4.0-5.2); White Blood Cell Count 9.1 X10^3/uL (4.5-11.0)
[2020-07-20 10:40] LABS: Alanine Aminotransferase 12 IU/L (<35); Albumin 4.3 g/dL (3.5-5.0); Albumin Globulin Ratio 1.7 (1.0-2.8); Alkaline Phosphatase 123 U/L (38-126); Aspartate Aminotransferase 22 IU/L (14-36); BUN Creatinine Ratio 16.1 (6-22); Bilirubin Total 0.3 mg/dL (0.2-1.3); Blood Urea Nitrogen 15 mg/dL (7-17); Calcium 9.9 mg/dL (8.4-10.2); Carbon Dioxide 23 mmol/L (22-32); Chloride 106 mmol/L (98-107); Cholesterol 202 mg/dL (140-199); Globulin 2.5 g/dL (1.7-4.1); Glucose 109 mg/dL (80-110); HDL Cholesterol 53 mg/dL (40-60); HEMOLYSIS < 15 (0-50); LDL Cholesterol Calculated 107 mg/dL (<100); Potassium 4.6 mmol/L (3.4-5.1); Sodium 136 mmol/L (137-145); Total Protein 6.8 g/dL (6.3-8.2); Triglycerides 211 mg/dL (35-150)
[2020-07-20 10:43] LABS: Microalbumi Creatinin Ratio Ur 11.5 ug/mg CR (<30); Microalbumin Urine Random < 0.6 mg/dL (0-1.6)
[2020-07-20 13:51] LABS: Thyroid Stimulating Hormone 0.185 uIU/mL (0.47-4.68)
== END ==
PROVIDERS: PCP Family Medicine; Referring Provider Family Medicine; Visit Provider Family Medicine
DX: E03.9 Hypothyroidism, unspecified (principal); I10 Essential (primary) hypertension; E78.5 Hyperlipidemia, unspecified
CPT/HCPCS: 36415; 80053; 80061; 82043; 82570; 84443; 85025

== ENCOUNTER → 2020-11-10 11:08 | Outpatient (CLI) | payer MEDICARE, OTHER, SELFPAY ==
[2020-11-10 13:16] LABS: TSH w/ Reflex to FT4 2.37 uIU/mL (0.47-4.68)
== END ==
PROVIDERS: PCP Family Medicine; Referring Provider Family Medicine; Visit Provider Family Medicine
DX: E03.9 Hypothyroidism, unspecified (principal)
CPT/HCPCS: 36415; 84443

== ENCOUNTER → 2020-11-22 08:23 | Outpatient (CLI) | payer MEDICARE, OTHER, SELFPAY ==
[2020-11-22 08:40] LABS: COVID19 -Nasal RAPID POSITIVE (Negative)
== END ==
PROVIDERS: PCP Family Medicine; Visit Provider Nurse Practitioner
DX: U07.1 COVID-19 (principal); R05 Cough
CPT/HCPCS: 87635

== ENCOUNTER → 2020-11-22 14:43 | Outpatient (CLI) | payer MEDICARE, OTHER, SELFPAY ==
--- NOTE | 2020-11-22 14:46 | DI.RAD.S_ITS ---
PROCEDURE: XR CHEST 2V INDICATIONS: cough, covid-19 positive TECHNIQUE: 2 views of the chest were acquired. COMPARISON: [facility], , CHEST 1 VIEW, 11/03/2013, 16:03. FINDINGS: Surgical changes and devices: None. Scattered scarring atelectasis which is grossly unchanged except for mild increased focal opacity in the left lung base. No pleural effusions or pneumothorax. Mediastinum: Mediastinal contours are normal. Heart size is normal. Bones and chest wall: No suspicious bony abnormalities. Soft tissues appear unremarkable. IMPRESSION: Mildly increased left lung base patchy opacity, which is technically age indeterminate in the absence of any recent prior studies. This could be chronic scarring/atelectasis however cannot exclude acute bronchopneumonia. If there is persistent clinical diagnostic uncertainty, continued surveillance with short interval chest radiographs after treatment is recommended. Dictated by: Colt Sheffield M.D. on 11/22/2020 at 15:18 Approved by: Colt Sheffield M.D. on 11/22/2020 at 15:20
== END ==
PROVIDERS: PCP Family Medicine; Referring Provider Nurse Practitioner; Visit Provider Nurse Practitioner
DX: U07.1 COVID-19 (principal); J40 Bronchitis, not specified as acute or chronic
CPT/HCPCS: 71046; 87635

== ENCOUNTER 2020-11-24 18:16 | Inpatient (IN) | payer MEDICARE, OTHER, SELFPAY ==
[2020-11-24] VITALS (14 sets, daily range): BP systolic 95–136; BP diastolic 45–60; PULSE 47–71; RESP 15–30; TEMP 36.1–36.3; O2SAT 90–97; BMI 29.2
--- NOTE | 2020-11-24 18:54 | ED_ITS ---
HPI - General Adult General Chief complaint: Upper Respiratory Symptoms Stated complaint: states has covid and pnuemonia, not getting better Time Seen by Provider: 11/24/20 18:20 Source: patient Mode of arrival: Ambulatory Limitations: no limitations History of Present Illness HPI narrative: 70-year-old female with a history of hypothyroidism and high blood pressure was seen in the walk-in clinic 2 days ago after having 3 days of cough and fevers and problems breathing. She does have a significant smoking history. Review of that note shows that the provider was initially concerned about a viral bronchitis. She was sent home with prednisone and albuterol inhaler with a spacer and Tessalon Perles. She also was tested for COVID-19 and had a chest x-ray however these results were not back by the time patient was discharged. The COVID-19 eventually was positive and the chest x-ray was concerning for pneumonia so patient was started on doxycycline. She is on day 3 of the antibiotic. She comes to the emergency department today stating that she does not feel any better. He is feeling somewhat worse. States she is having problems breathing especially when she exerts herself. Is having intermittent chest discomfort. She was told to come to the emergency department if she had any worsening symptoms Related Data Home Medications Medication Instructions Recorded Confirmed dicyclomine 10 mg PO BID PRN 06/10/19 11/24/20 turmeric paste See Rx Instructions .ROUTE .COMPLEX 12/21/19 11/22/20 citalopram 40 mg PO QAM 11/24/20 11/24/20 lisinopril 20 mg PO DAILY 11/24/20 11/24/20 Previous Rx's Medication Instructions Recorded trazodone 50 mg tablet 100 mg PO HS #180 tab 01/27/20 pravastatin 20 mg tablet 20 mg PO DAILY #90 tab 04/05/20 omeprazole 20 mg capsule,delayed 20 mg PO DAILY #90 cap 08/04/20 release levothyroxine 75 mcg tablet 75 mcg PO DAILY #90 tab 11/10/20 albuterol sulfate 90 mcg/actuation 2 puff INHALATION Q4-6H PRN #8.5 g 11/22/20 aerosol inhaler benzonatate 100 mg capsule 100 mg PO BID-TID PRN #10 cap 11/22/20 doxycycline hyclate 100 mg tablet 100 mg PO BID 7 Days #14 tab 11/22/20 inhalational spacing device #1 ea 11/22/20 prednisone 50 mg tablet 50 mg PO DAILY 5 Days #5 tab 11/22/20 Allergies Allergy/AdvReac Type Severity Reaction Status Date / Time Sulfa (Sulfonamide Allergy Severe SWELL UP Verified 11/24/20 18:24 Antibiotics) morphine AdvReac Severe Not Verified 11/24/20 18:24 allergic - patient doesn't want it. oxycodone [OXYCODONE] AdvReac Intermediate itchy, I Verified 11/24/20 18:24 feel like I'm coming out of my skin Review of Systems Constitutional Constitutional: Reports body ache(s), Reports chills, Reports fever(s) and Reports lethargy Cardiovascular Cardiovascular: Reports chest pain, Reports dyspnea and Reports dyspnea on ex ertion Respiratory Respiratory: Reports cough, Reports pain on inspiration, Reports dyspnea and Reports dyspnea on exertion Gastrointestinal Gastrointestinal: Denies abdominal pain, Denies nausea and Denies vomiting Genitourinary Genitourinary: Denies dysuria Genitourinary: Denies dysuria Musculoskeletal Musculoskeletal: Denies arthralgias and Denies myalgias Integumentary/Breasts Skin/Breast: Denies lesions and Denies rash Neurologic Neurologic: Denies confusion Psychiatric Psychiatric: Denies confusion Hematologic/Lymphatic Hematologic/Lymphatic: Denies easy bleeding and Denies easy bruising Allergic/Immunologic Allergic/Immunologic: Denies urticaria Patient History Medical History Anxiety (~2014) Carpal tunnel syndrome (~2009) Chicken pox (~1954) Chronic back pain (~1989) Chronic cough (~2016) Degenerative disc disease, lumbar (~1994) Depression (~1989) Foot pain (~2011) Hay fever (~1974) Irritable bowel syndrome (~1999) Measles (~1954) Mumps (~1954) Recurrent sinusitis (~1974) Rheumatic fever (~1958) Sleep apnea (~2000) Surgical History History of carpal tunnel repair (~2000) History of carpal tunnel repair (~2016) History of spinal fusion Status post breast reduction Status post cholecystectomy Status post hysterectomy Family History Brother Age: 71 Prostate cancer Father Heart disease Mental health problem Mother Malignant neoplasm of female breast, unspecified laterality, unspecified site of breast Sister Age: 70 MS (multiple sclerosis) Grandfather No problems noted. Grandmother No problems noted. Grandfather No problems noted. Grandmother No problems noted. Social History marital status: household members: family and children lives independently: Yes pets and animals: Yes occupational status: employed Smoking Status: Current every day smoker alcohol intake: former substance use type: does not use Smoking Status: Current every day smoker Substance Use Type: marijuana Exam Initial Vital Signs Initial Vital Signs: Vital Signs Temperature 97.3 F L 11/24/20 18:20 Pulse Rate 71 11/24/20 18:20 Respiratory Rate 15 11/24/20 18:20 Blood Pressure 127/58 L 11/24/20 18:20 Pulse Oximetry 94 11/24/20 18:20 Const General: cooperative, well groomed, No acute distress and ill appearing Limitations: mental status not altered HENMT Head: normal to inspection and normocephalic Resp Effort & Inspection: not labored and tachypneic Auscultation: rhonchi and wheezes Cardio Rate: regular rate Rhythm: regular rhythm GI Inspection: non-distended Palpation: soft Skin Lesions: no lesions Rashes: no rashes Neuro General: patient alert, patient awake and patient oriented x3 Cognition: normal cognition Speech: speech normal Extrem General: normal to inspection and capillary refill normal Psych Appearance: well kempt Course Orders Ordered: ED Orders 11/24/20 18:55 EKG-12 Lead Stat 11/24/20 18:56 XR chest 1V Stat 11/24/20 19:15 C-Reactive Protein Quant Stat Complete Blood Count AUTO DIFF Stat Comprehensive Metabolic Panel Stat D Dimer Stat Ferritin Stat Lactate (Lactic Acid) Stat Lactate Dehydrogenase Stat Procalcitonin Stat Troponin & CK Cardiac Panel Stat 11/24/20 19:32 Blood Culture Stat Acetaminophen (Acetaminophen 325 Mg Tablet) 650 mg PO Q4HR PRN PRN Reason: Fever/Mild Pain (1-3) Albuterol (Albuterol Hfa Mdi 60 Puff/8 Gm Inhaler) 2 puff INH RTQ4HR PRN PRN Reason: Wheezing Dexamethasone (Dexamethasone 10 Mg/Ml Vial) 6 mg IV DAILY [facility] Docusate Sodium (Docusate 100 Mg Capsule) 100 mg PO BID [facility] Enoxaparin Sodium (Enoxaparin 40 Mg/0.4 Ml Syringe) 40 mg SUBCUT DAILY [facility] Famotidine (Famotidine 20 Mg Tablet) 20 mg PO BID [facility] Guaifenesin (Guaifenesin Er 600 Mg Tab) 600 mg PO BID [facility] Levothyroxine Sodium (Levothyroxine 75 Mcg Tablet) 75 mcg PO DAILY [facility] Lisinopril (Lisinopril 20 Mg Tablet) 20 mg PO DAILY [facility] Melatonin (Melatonin 3 Mg Tablet) 6 mg PO BEDTIME [facility] Naloxone HCl (Naloxone 0.4 Mg/Ml Vial) 0.2 mg IV Q2MIN PRN PRN Reason: Opiate Reversal Non-Formulary Medication (Citalopram) 40 mg PO QAM [facility] Pravastatin Sodium (Pravastatin 20 Mg Tablet) 20 mg PO DAILY [facility] Promethazine HCl (Promethazine 12.5 Mg Supp) 12.5 mg NC Q6HR PRN PRN Reason: Nausea And Vomiting Discontinued Medications Remdesivir 200 mg/ Sodium (Chloride) 250 mls @ 250 mls/hr IV NOW ONE Stop: 11/24/20 21:41 Vital Signs Vital signs: Vital Signs - 8 hr 11/24/20 18:20 11/24/20 19:04 11/24/20 19:05 Temperature 97.3 F L Pulse Rate 71 63 69 Respiratory Rate 15 17 18 Blood Pressure 127/58 L 95/45 L 107/54 L Pulse Oximetry 94 94 93 11/24/20 19:10 11/24/20 19:20 11/24/20 19:30 Temperature Pulse Rate 59 L 59 L 58 L Respiratory Rate 16 22 28 H Blood Pressure Pulse Oximetry 95 91 92 11/24/20 19:31 11/24/20 19:32 11/24/20 20:00 Temperature Pulse Rate 61 58 L 53 L Respiratory Rate 29 H 23 18 Blood Pressure 115/56 L 115/56 L Pulse Oximetry 94 92 90 L 11/24/20 20:30 11/24/20 21:00 Temperature Pulse Rate 49 L 47 L Respiratory Rate 30 H 17 Blood Pressure 110/54 L 114/59 L Pulse Oximetry 90 L 92 Medical Decision Making Lab Data Lab results reviewed: Yes I reviewed the patient's lab results. Result diagrams: 11/24/20 19:15 11/24/20 19:15 Labs: Lab Results 11/24/20 11/24/20 11/24/20 Range/Units 19:15 19:15 19:15 WBC 7.1 (4.5-11.0) X10^3/uL RBC 4.34 (4.0-5.2) X10^6/uL Hgb 12.3 (12.0-16.0) g/dL Hct 36.9 (36-46) % MCV 85.0 (80-100) fL MCH 28.3 (26-34) PG MCHC 33.2 (30-36) % RDW 14.0 (11.6-14.8) % Plt Count 180 (150-400) X10^3/uL Neut % (Auto) 81.8 H (50-75) % Lymph % (Auto) 14.8 L (25-40) % [place] % (Auto) 3.2 (3-14) % Eos % (Auto) 0.0 L (2-4) % Baso % (Auto) 0.2 (0-2) % Neut # (Auto) 5800 (2540-6770) /uL Lymph # (Auto) 1000 L (1646-0929) /uL [place] # (Auto) 200 (0-900) /uL Eos # (Auto) 0 (0-450) /uL Baso # (Auto) 0 (0-100) /uL PT (10.1-12.7) SECONDS INR (0.9-1.3) APTT (26.4-36.2) SECONDS D-Dimer 314 H (<230) ng/mL Sodium (137-145) mmol/L Potassium (3.4-5.1) mmol/L Chloride (98-107) mmol/L Carbon Dioxide (22-32) mmol/L BUN (7-17) mg/dL Creatinine (0.52-1.04) mg/dL Estimated GFR (>60) mL/min BUN/Creatinine Ratio (6-22) Glucose (80-110) mg/dL Lactate (0.7-2.1) mmol/L Calcium (8.4-10.2) mg/dL Magnesium (1.6-2.3) mg/dL Ferritin (11-264) ng/mL Total Bilirubin (0.2-1.3) mg/dL AST (14-36) IU/L ALT (<35) IU/L Alkaline Phosphatase (38-126) U/L Lactate Dehydrogenase (313-618) U/L Total Creatine Kinase (30-135) U/L CK-MB (CK-2) (<2.37) ng/mL CK-MB (CK-2) Rel Index (1.5-5.0) % Troponin I (0.01-0.034) ng/mL C-Reactive Protein (<1.0) mg/dL Total Protein (6.3-8.2) g/dL Albumin (3.5-5.0) g/dL Globulin (1.7-4.1) g/dL Albumin/Globulin Ratio (1.0-2.8) Procalcitonin 0.23 (<0.5) ng/mL 11/24/20 11/24/20 11/24/20 Range/Units 19:15 19:15 19:15 WBC (4.5-11.0) X10^3/uL RBC (4.0-5.2) X10^6/uL Hgb (12.0-16.0) g/dL Hct (36-46) % MCV (80-100) fL MCH (26-34) PG MCHC (30-36) % RDW (11.6-14.8) % Plt Count (150-400) X10^3/uL Neut % (Auto) (50-75) % Lymph % (Auto) (25-40) % [place] % (Auto) (3-14) % Eos % (Auto) (2-4) % Baso % (Auto) (0-2) % Neut # (Auto) (1057-9622) /uL Lymph # (Auto) (8128-0449) /uL [place] # (Auto) (0-900) /uL Eos # (Auto) (0-450) /uL Baso # (Auto) (0-100) /uL PT (10.1-12.7) SECONDS INR (0.9-1.3) APTT (26.4-36.2) SECONDS D-Dimer (<230) ng/mL Sodium 138 (137-145) mmol/L Potassium 4.3 (3.4-5.1) mmol/L Chloride 108 H (98-107) mmol/L Carbon Dioxide 22 (22-32) mmol/L BUN 22 H (7-17) mg/dL Creatinine 0.89 (0.52-1.04) mg/dL Estimated GFR > 60.0 (>60) mL/min BUN/Creatinine Ratio 24.7 H (6-22) Glucose 125 H (80-110) mg/dL Lactate 1.5 (0.7-2.1) mmol/L Calcium 9.2 (8.4-10.2) mg/dL Magnesium (1.6-2.3) mg/dL Ferritin 148 (11-264) ng/mL Total Bilirubin < 0.1 L (0.2-1.3) mg/dL AST 48 H (14-36) IU/L ALT 31 (<35) IU/L Alkaline Phosphatase 102 (38-126) U/L Lactate Dehydrogenase 672 H (313-618) U/L Total Creatine Kinase 103 (30-135) U/L CK-MB (CK-2) 0.81 (<2.37) ng/mL CK-MB (CK-2) Rel Index 0.8 L (1.5-5.0) % Troponin I < 0.012 (0.01-0.034) ng/mL C-Reactive Protein 1.6 H (<1.0) mg/dL Total Protein 6.8 (6.3-8.2) g/dL Albumin 4.0 (3.5-5.0) g/dL Globulin 2.8 (1.7-4.1) g/dL Albumin/Globulin Ratio 1.4 (1.0-2.8) Procalcitonin (<0.5) ng/mL 11/24/20 11/24/20 Range/Units 19:15 19:15 WBC (4.5-11.0) X10^3/uL RBC (4.0-5.2) X10^6/uL Hgb (12.0-16.0) g/dL Hct (36-46) % MCV (80-100) fL MCH (26-34) PG MCHC (30-36) % RDW (11.6-14.8) % Plt Count (150-400) X10^3/uL Neut % (Auto) (50-75) % Lymph % (Auto) (25-40) % [place] % (Auto) (3-14) % Eos % (Auto) (2-4) % Baso % (Auto) (0-2) % Neut # (Auto) (9028-1287) /uL Lymph # (Auto) (1797-5400) /uL [place] # (Auto) (0-900) /uL Eos # (Auto) (0-450) /uL Baso # (Auto) (0-100) /uL PT 11.9 (10.1-12.7) SECONDS INR 1.0 (0.9-1.3) APTT 45 H (26.4-36.2) SECONDS D-Dimer (<230) ng/mL Sodium (137-145) mmol/L Potassium (3.4-5.1) mmol/L Chloride (98-107) mmol/L Carbon Dioxide (22-32) mmol/L BUN (7-17) mg/dL Creatinine (0.52-1.04) mg/dL Estimated GFR (>60) mL/min BUN/Creatinine Ratio (6-22) Glucose (80-110) mg/dL Lactate (0.7-2.1) mmol/L Calcium (8.4-10.2) mg/dL Magnesium 1.9 (1.6-2.3) mg/dL Ferritin (11-264) ng/mL Total Bilirubin (0.2-1.3) mg/dL AST (14-36) IU/L ALT (<35) IU/L Alkaline Phosphatase (38-126) U/L Lactate Dehydrogenase (313-618) U/L Total Creatine Kinase (30-135) U/L CK-MB (CK-2) (<2.37) ng/mL CK-MB (CK-2) Rel Index (1.5-5.0) % Troponin I (0.01-0.034) ng/mL C-Reactive Protein (<1.0) mg/dL Total Protein (6.3-8.2) g/dL Albumin (3.5-5.0) g/dL Globulin (1.7-4.1) g/dL Albumin/Globulin Ratio (1.0-2.8) Procalcitonin (<0.5) ng/mL Imaging Data Chest x-ray: Radiologist's Impression: [facility] [place] [id number] ReportSigned Patient: Nivia Mancuso MMR#: [id number]: 2Acct:[id number]/Sex: 70 / FDate of Service: 11/24/20Loc: EDAccession Number: [id number] Procedure: XR chest 1V Ordering Provider: David Rayo D.O. PROCEDURE: XR CHEST 1V INDICATIONS: flu-like symptoms TECHNIQUE: One view of the chest was acquired. COMPARISON: [facility], , XR CHEST 2V, 11/22/2020, 14:55. FINDINGS: Surgical changes and devices: None. Lungs and pleura: Lungs demonstrate chronic coarse interstitial markings and asymmetric strandy opacity in the left lateral low lung base, similar to slightly worse compared to the prior study. No dense consolidations. No pleural effusions or pneumothorax. Mediastinum: Mediastinal contours appear normal. Heart size is normal. Bones and chest wall: No suspicious bony lesions. Overlying soft tissues appear unremarkable. IMPRESSION: 1. Slight worsening of strandy left lateral lung base opacity which can be seen in viral pneumonia. 2. Findings are superimposed on chronic coarse interstitial markings suggesting emphysema or fibrosis. Dictated by: Tran Rasmussen M.D. on 11/24/2020 at 20:20 Approved by: Tran Rasmussen M.D. on 11/24/2020 at 20:21 ECG Data Attestation: I personally reviewed and interpreted this ECG as follows: Prior ECG tracings: not available for review Interpretation: Sinus rhythm Ventricular rate is 61 Normal axis Normal QRS We QTC No ST T wave changes MDM Narrative Medical decision making narrative: I have low suspicion for cardiac etiology of her symptoms. The chest x-ray today is somewhat worse that a couple days ago showing increased haziness on the left side. Given the fact that she was recently diagnosed with COVID-19 I do suspect that this is a viral (COVID-19) pneumonia and less likely a bacterial pneumonia. However would recommend continuing the antibiotics since she is now on day 3 of treatment. Patient did have coarse breath sounds. She does have a significant smoking history but states she has never been diagnosed with sleep apnea or COPD. While resting in bed patient's oxygen saturations drifted to 90. I suspect that if we were to ambulate the patient she would become hypoxic into the 80s. Given her labs, shortness of breath with activity, presumed hypoxia with exertion and a known oxygen saturation 90% with resting in bed can not the findings on the chest x- ray I feel admission to the hospital warranted secondary to the high likelihood of decline. I did discuss this with the patient. She expressed understanding and agreement. Discussed the case with NICK Luevano the night hospitalist who will admit for further evaluation treatment. Discharge Plan Departure Patient Disposition: Admitted As Inpatient Clinical Impression: COVID-19, Pneumonia, Hypoxia Admit Date/Time: 11/24/20 21:04 Admit Provider: Jamie Luevano
[2020-11-24 19:23] LABS: Add Manual Diff / Slide Review NO; Basophils Absolute Auto 0 /uL (0-100); Basophils Percent Auto 0.2 % (0-2); Eosinophils Absolute Auto 0 /uL (0-450); Hematocrit 36.9 % (36-46); Hemoglobin 12.3 g/dL (12.0-16.0); Lymphocytes Absolute Auto 1000 /uL (1100-4500); Lymphocytes Percent Auto 14.8 % (25-40); Mean Corpuscular HGB Conc 33.2 % (30-36); Mean Corpuscular Hemoglobin 28.3 PG (26-34); Monocytes Absolute Auto 200 /uL (0-900); Monocytes Percent Auto 3.2 % (3-14); Neutrophils Absolute Auto 5800 /uL (1500-7000); Neutrophils Percent Auto 81.8 % (50-75); Platelet Count 180 X10^3/uL (150-400); Red Blood Cell Count 4.34 X10^6/uL (4.0-5.2); White Blood Cell Count 7.1 X10^3/uL (4.5-11.0)
[2020-11-24 19:32] LABS: D Dimer 314 ng/mL (<230)
[2020-11-24 19:34] LABS: Lactate (Lactic Acid) 1.5 mmol/L (0.7-2.1)
[2020-11-24 19:35] LABS: Lactate Dehydrogenase 672 U/L (313-618)
[2020-11-24 19:37] LABS: Alanine Aminotransferase 31 IU/L (<35); Albumin Globulin Ratio 1.4 (1.0-2.8); Alkaline Phosphatase 102 U/L (38-126); Aspartate Aminotransferase 48 IU/L (14-36); BUN Creatinine Ratio 24.7 (6-22); Blood Urea Nitrogen 22 mg/dL (7-17); C-Reactive Protein Quant 1.6 mg/dL (<1.0); Calcium 9.2 mg/dL (8.4-10.2); Carbon Dioxide 22 mmol/L (22-32); Chloride 108 mmol/L (98-107); Creatine Kinase 103 U/L (30-135); Estimated Glomerular Filt Rate > 60.0 mL/min (>60); Globulin 2.8 g/dL (1.7-4.1); Glucose 125 mg/dL (80-110); HEMOLYSIS < 15 (0-50); Potassium 4.3 mmol/L (3.4-5.1); Sodium 138 mmol/L (137-145); Total Protein 6.8 g/dL (6.3-8.2)
[2020-11-24 19:40] LABS: Bilirubin Total < 0.1 mg/dL (0.2-1.3)
[2020-11-24 19:47] LABS: Troponin I < 0.012 ng/mL (0.01-0.034)
[2020-11-24 19:50] LABS: CKMB % Relative Index 0.8 % (1.5-5.0); Creatine Kinase MB 0.81 ng/mL (<2.37)
[2020-11-24 20:10] LABS: Ferritin 148 ng/mL (11-264)
[2020-11-24 20:17] LABS: Procalcitonin 0.23 ng/mL (<0.5)
[2020-11-24 21:58] LABS: Magnesium 1.9 mg/dL (1.6-2.3)
[2020-11-24 22:09] LABS: Prothrombin Time 11.9 SECONDS (10.1-12.7)
[2020-11-24 22:12] LABS: PTT Partial Thromboplastin Tim 45 SECONDS (26.4-36.2)
[2020-11-24] MEDS: MELATONIN 3 MG TABLET 6 MG PO (22:50)
[2020-11-24] MEDS: FAMOTIDINE 20 MG TABLET PO (22:50)
[2020-11-24] MEDS: REMDESIVIR 200 MG in SODIUM CHLORIDE 0.9% 210 ML 250 ML IV (22:53)
[2020-11-24] MEDS: ALBUTEROL HFA MDI 60 PUFF/8 GM INHALER INH (23:53)
--- NOTE | 2020-11-25 00:53 | P.HP_ITS ---
History of Present Illness History of Present Illness Date Patient Seen: 11/24/20 Time Patient Seen: 23:10 Chief complaint: states has covid and pnuemonia, not getting better Narrative: Ms. Nivia Mancuso is a 62-year-old female who is a current smoker with over 50 pack year history and a past medical history significant for hyperlipidemia, GERD, irritable bowel syndrome, hypothyroidism, rheumatic fever, sleep apnea using CPAP, anxiety and depression, chronic back pain related to degenerative disc disease who presents to the ER with worsening shortness of breath, cough and congestion. Patient states that her symptoms began 8 days ago with cough developing headache and body aches and progressive shortness of breath. The patient presented to the walk-in clinic where she was diagnosed with viral bronchitis and started on an inhaler and prednisone. Upon review the chest x-ray revealed concern for pneumonia and she was started on doxycycline and has taken approximately 5 doses.. A COVID screening was obtained at that time which subsequently came back positive. The patient was told she was not feeling better in 2 days to present to the ER for re-evaluation. Patient states her symptoms have been progressive and she endorses exertional dyspnea but denies nausea vomiting. She denies subjective fevers but has had some chills. She has chest wall pain from coughing and denies palpitations. She has shortness of breath with activity, a nonproductive dry cough and wheezing. She denies abdominal pain, nausea vomiting, diarrhea or constipation. She reports no urinary symptoms. Upon arrival the patient's temperature 97.3?, heart rate of 71, blood pressure 127/58, respirations 15 saturating 94% on room air. During stay in the ER low 2s continues moderate with saturations dropping to 90% at rest. Chest x-ray obtained when compared to previous x-ray dated is ago describes slightly worse stranding, left lateral base opacity, coarse interstitial markings suggestive of emphysema or fibrosis. Twelve lead EKG obtained finds sinus rhythm at a rate of 60 without ectopy or block, ST or T-wave changes no evidence of infarct. On laboratory analysis the patient has white count is 7.1 with lymphocytes at 14.8%, hemoglobin 13.3, hematocrit 36.9 and platelets of 180. D-dimer is slightly elevated at 314. Her electrolytes are within normal limits she has a BUN of 22 and creatinine is 0.89. Her nonfasting glucose is 125 on 3 days of steroids. She has a total bilirubin of less than 0.1, AST of 48, ALT of 31 and alkaline phosphatase of 102. She has positive markers for an LDH of 672, CRP 1.6, and ferritin of 148. Procalcitonin is 0.23 and her lactic acid is 1.5. She has a total CK of 103 within CK-MB of 0.81 for an index of 0.8%. Troponin is negative at less than 0.012. In the ER the patient demonstrates hypoxemia without exertion and has positive x-ray findings and therefore is admitted to the hospitalist service with COVID pneumonia. Patient History Medical History Anxiety (~2014) Carpal tunnel syndrome (~2009) Chicken pox (~1954) Chronic back pain (~1989) Chronic cough (~2016) Degenerative disc disease, lumbar (~1994) Depression (~1989) Foot pain (~2011) Hay fever (~1974) Irritable bowel syndrome (~1999) Measles (~1954) Mumps (~1954) Recurrent sinusitis (~1974) Rheumatic fever (~1958) Sleep apnea (~2000) Surgical History History of carpal tunnel repair (~2000) History of carpal tunnel repair (~2016) History of spinal fusion Status post breast reduction Status post cholecystectomy Status post hysterectomy Family & Social History Family History Brother Age: 71 Prostate cancer Father Heart disease Mental health problem Mother Malignant neoplasm of female breast, unspecified laterality, unspecified site of breast Sister Age: 70 MS (multiple sclerosis) Grandfather No problems noted. Grandmother No problems noted. Grandfather No problems noted. Grandmother No problems noted. Social History: household members family,children Prior Living Arrangements House lives independently Yes Safety & Behavioral: Feels Safe in Current Yes Environment Been Physically Hurt or No Threatened By a Person Suicidal Ideation Description None Suicide Plan Description No Plan Tobacco & Substance use: Tobacco type cigarettes Smoking Status Current every day smoker Smoking packs per day 1 alcohol intake former Substance Use Type marijuana Meds Home Medications and Allergies Home Medications Medication Instructions Recorded Confirmed Type dicyclomine 10 mg PO BID PRN 06/10/19 11/24/20 History turmeric paste See Rx Instructions .ROUTE .COMPLEX 12/21/19 11/22/20 History trazodone 50 mg tablet 100 mg PO HS #180 tab 01/27/20 11/24/20 Rx pravastatin 20 mg tablet 20 mg PO DAILY #90 tab 04/05/20 11/24/20 Rx omeprazole 20 mg capsule,delayed 20 mg PO DAILY #90 cap 08/04/20 11/24/20 Rx release levothyroxine 75 mcg tablet 75 mcg PO DAILY #90 tab 11/10/20 11/24/20 Rx albuterol sulfate 90 mcg/actuation 2 puff INHALATION Q4-6H PRN #8.5 g 11/22/20 11/24/20 Rx aerosol inhaler benzonatate 100 mg capsule 100 mg PO BID-TID PRN #10 cap 11/22/20 11/24/20 Rx doxycycline hyclate 100 mg tablet 100 mg PO BID 7 Days #14 tab 11/22/20 11/24/20 Rx inhalational spacing device #1 ea 11/22/20 11/22/20 Rx prednisone 50 mg tablet 50 mg PO DAILY 5 Days #5 tab 11/22/20 11/24/20 Rx citalopram 40 mg PO QAM 11/24/20 11/24/20 History lisinopril 20 mg PO DAILY 11/24/20 11/24/20 History Allergies Allergy/AdvReac Type Severity Reaction Status Date / Time Sulfa (Sulfonamide Allergy Severe SWELL UP Verified 11/24/20 18:24 Antibiotics) morphine AdvReac Severe Not Verified 11/24/20 18:24 allergic - patient doesn't want it. oxycodone [OXYCODONE] AdvReac Intermediate itchy, I Verified 11/24/20 18:24 feel like I'm coming out of my skin Review of Systems Review of Systems ROS: Yes All systems reviewed with the patient and are negative except as otherwise documented Exam Vital Signs (past 8 hours): - 11/24/20 18:20 11/24/20 19:04 11/24/20 19:05 Temperature 97.3 F L Pulse Rate 71 63 69 Respiratory Rate 15 17 18 Blood Pressure 127/58 L 95/45 L 107/54 L Pulse Oximetry 94 94 93 11/24/20 19:10 12/24/20 19:20 11/24/20 19:30 Temperature Pulse Rate 59 L 59 L 58 L Respiratory Rate 16 22 28 H Blood Pressure Pulse Oximetry 95 91 92 11/24/20 19:31 11/24/20 19:32 11/24/20 20:00 Temperature Pulse Rate 61 58 L 53 L Respiratory Rate 29 H 23 18 Blood Pressure 115/56 L 115/56 L Pulse Oximetry 94 92 90 L 11/24/20 20:30 11/24/20 21:00 11/24/20 21:35 Temperature 97 F L Pulse Rate 49 L 47 L 57 L Respiratory Rate 30 H 17 15 Blood Pressure 110/54 L 114/59 L 136/60 Pulse Oximetry 90 L 92 93 11/24/20 23:48 11/24/20 23:54 Temperature Pulse Rate 49 L 50 L Respiratory Rate 22 22 Blood Pressure 115/55 L Pulse Oximetry 97 97 Oxygen Delivery Method Nasal Cannula Oxygen Flow Rate 2 Narrative Exam Narrative: GENERAL APPEARANCE: well developed, well nourished, in no acute distress. HEENT: Normocephalic, PERRLA, conjunctiva clear, EOMs intact without nystagmus, no sinus tenderness to percussion, no rhinorrhea, mucous membranes are moist and pink without lesions or exudate. NECK/THYROID: neck supple, no JVD, no carotid bruit, no thyromegaly, trachea midline. LYMPH NODES: no cervical or supraclavicular lymphadenopathy. SKIN: [place], warm and dry, no visible lesions, rashes, ulcerations or petechiae. HEART: regular rate and rhythm, S1-S2, no murmur, no rubs or gallops, brisk capillary refill, no edema LUNGS: bilateral expiratory wheezing and crackles left greater than right and central coarseness, dry nonproductive cough present CHEST: Symmetrical movement, no accessory muscle use, good tidal volume. ABDOMEN: Soft, no distention, no abdominal tenderness, no organomegaly, no flank or suprapubic tenderness, active bowel tones. BACK: Normal curvature, nontender to palpation, no CVA tenderness on percussion EXTREMITIES: moves all extremities, strength is 5/5 and symmetrical, no deformities or joint effusions. NEUROLOGIC: AAO x4, no focal neurologic deficits, cranial nerves II-XII grossly intact, sensation intact to light touch, hearing grossly normal to speech. PSYCH: Anxious, good eye contact, cooperative with stable behavior. Objective Labs Result Diagrams: 11/24/20 19:15 11/24/20 19:15 Labs: Laboratory Results - last 24 hr 11/24/20 11/24/20 11/24/20 19:15 19:15 19:15 WBC 7.1 RBC 4.34 Hgb 12.3 Hct 36.9 MCV 85.0 MCH 28.3 MCHC 33.2 RDW 14.0 Plt Count 180 Neut % (Auto) 81.8 H Lymph % (Auto) 14.8 L [place] % (Auto) 3.2 Eos % (Auto) 0.0 L Baso % (Auto) 0.2 Neut # (Auto) 5800 Lymph # (Auto) 1000 L [place] # (Auto) 200 Eos # (Auto) 0 Baso # (Auto) 0 PT INR APTT D-Dimer 314 H Sodium Potassium Chloride Carbon Dioxide BUN Creatinine Estimated GFR BUN/Creatinine Ratio Glucose Lactate Calcium Magnesium Ferritin Total Bilirubin AST ALT Alkaline Phosphatase Lactate Dehydrogenase Total Creatine Kinase CK-MB (CK-2) CK-MB (CK-2) Rel Index Troponin I C-Reactive Protein Total Protein Albumin Globulin Albumin/Globulin Ratio Procalcitonin 0.23 11/24/20 11/24/20 11/24/20 19:15 19:15 19:15 WBC RBC Hgb Hct MCV MCH MCHC RDW Plt Count Neut % (Auto) Lymph % (Auto) [place] % (Auto) Eos % (Auto) Baso % (Auto) Neut # (Auto) Lymph # (Auto) [place] # (Auto) Eos # (Auto) Baso # (Auto) PT INR APTT D-Dimer Sodium 138 Potassium 4.3 Chloride 108 H Carbon Dioxide 22 BUN 22 H Creatinine 0.89 Estimated GFR > 60.0 BUN/Creatinine Ratio 24.7 H Glucose 125 H Lactate 1.5 Calcium 9.2 Magnesium Ferritin 148 Total Bilirubin < 0.1 L AST 48 H ALT 31 Alkaline Phosphatase 102 Lactate Dehydrogenase 672 H Total Creatine Kinase 103 CK-MB (CK-2) 0.81 CK-MB (CK-2) Rel Index 0.8 L Troponin I < 0.012 C-Reactive Protein 1.6 H Total Protein 6.8 Albumin 4.0 Globulin 2.8 Albumin/Globulin Ratio 1.4 Procalcitonin 11/24/20 11/24/20 19:15 19:15 WBC RBC Hgb Hct MCV MCH MCHC RDW Plt Count Neut % (Auto) Lymph % (Auto) [place] % (Auto) Eos % (Auto) Baso % (Auto) Neut # (Auto) Lymph # (Auto) [place] # (Auto) Eos # (Auto) Baso # (Auto) PT 11.9 INR 1.0 APTT 45 H D-Dimer Sodium Potassium Chloride Carbon Dioxide BUN Creatinine Estimated GFR BUN/Creatinine Ratio Glucose Lactate Calcium Magnesium 1.9 Ferritin Total Bilirubin AST ALT Alkaline Phosphatase Lactate Dehydrogenase Total Creatine Kinase CK-MB (CK-2) CK-MB (CK-2) Rel Index Troponin I C-Reactive Protein Total Protein Albumin Globulin Albumin/Globulin Ratio Procalcitonin Assessment & Plan Assessment & Plan narrative: This 70-year-old female who developed initial symptoms 8 days ago including cough congestion headache body aches who presents to the ER for follow-up evaluation after testing positive for COVID-19 on 11/22/2020. 1. COVID pneumonia, acute, present on admission, active -Patient does not meet septic criteria but presents with stage II COVID pne umonia manifested by a PF ratio less than 300. -the patient has been on doxycycline for 2 days and chest x-ray demonstrates slightly worse stranding with left lateral base opacity consistent with viral pneumonia -she has positive markers with low lymphocytes at 14.8%, a D-dimer of 314, LDH 672, and CRP of 1.6. -patient was started on prednisone 50 mg daily by the walk-in clinic 2 days ago. Ordered dexamethasone 6 mg IV daily for 10 days. -the patient is started on oxygen to maintain oxygen saturation greater than 94% for initial therapy. -ordered remdesivir 200 mg x1 now, remdesivir 100 mg daily for an additional 4 days -discussed and explained the rationale for proning with goal of prone positioning 8 hours out of 12. 2. Exacerbation of chronic lung disease, acute, present on admission, active -patient has underlying evidence of interstitial lung markings consistent with emphysema or fibrosis on chest x-ray in the setting of over 50 pack-year history of smoking. -patient presents with bilateral expiratory wheezing and crackles left greater than right and central coarseness. -requested respiratory therapy to consult evaluate and treat. -albuterol MDI 2 puffs every 4 hours as needed for wheezing only. -order guaifenesin 600 mg twice daily as needed. -obtain a respiratory panel to rule out other etiology. 3. Sleep apnea, chronic, stable. -requested respiratory therapy to consult evaluate and treat. -ordered CPAP as able considering positioning, patient may use own machine. 4. Chronic low back pain, stable. -the patient is receiving steroid therapy in treatment of COVID pneumonia. -discussed treatment with the patient who agrees to Tylenol 975 mg every 8 hours for pain. 5. GERD, chronic, stable -patient has taken omeprazole for her symptoms. -ordered famotidine 40 mg twice daily as adjunct COVID therapy VTE prophylaxis: Enoxaparin 40 mg daily IV fluid: Saline lock Diet: Heart healthy Code status: Full code The patient is admitted to the hospital due to the severity and progression of her symptoms in the risk for potential complications and adverse events with a complex treatment plan. The patient is admitted as an inpatient with expected length of stay to be greater than 2 midnights. COVID-19 COVID-19 status: Positive Result date/Date tested (Pos, Neg/Pending): 11/22/20 Quality VTE Deep Vein Thrombosis/Pulmonary Embolism Present on Admission: No
[2020-11-25 04:00] VITALS: BP 119/56; PULSE 43; RESP 22; TEMP 37.1; O2SAT 94
--- NOTE | 2020-11-25 04:30 | PC.NURSE ---
0430- Patient able to give sputum specimen and a Respiratory array sent per order. Patient remains afebrile. Patient states she has had a spinal fusion surgery which make laying on her stomach very uncomfortable. She was able to lay prone x5hr and is now laying semi-prone. Saturations remain 94-97%. Will monitor.
[2020-11-25 04:57] LABS: Blood Urea Nitrogen 24 mg/dL (7-17); Calcium 9.1 mg/dL (8.4-10.2); Carbon Dioxide 27 mmol/L (22-32); Chloride 108 mmol/L (98-107); Estimated Glomerular Filt Rate > 60.0 mL/min (>60); Glucose 106 mg/dL (80-110); HEMOLYSIS < 15 (0-50); Potassium 4.4 mmol/L (3.4-5.1); Sodium 139 mmol/L (137-145)
[2020-11-25 05:11] LABS: Adenovirus Not Detected (Not Detect)
[2020-11-25 05:14] LABS: SARS- CoV-2 Detected (Not Detecte)
[2020-11-25 05:15] LABS: Bordetella pertussis Not Detected (Not Detect); Chlamydophila pneumoniae Not Detected (Not Detect); Coronavirus 229E Not Detected (Not Detect); Coronavirus HKU1 Not Detected (Not Detect); Coronavirus NL 63 Not Detected (Not Detect); Coronavirus OC43 Not Detected (Not Detect); Human Metapneumovirus Not Detected (Not Detect); Human Rhinovirus/Enterovirus Not Detected (Not Detect); Influenza A Not Detected (Not Detect); Influenza B Not Detected (Not Detect); Mycoplasma pneumoniae Not Detected (Not Detect); Parainfluenza Virus 1 Not Detected (Not Detect); Parainfluenza Virus 2 Not Detected (Not Detect); Parainfluenza Virus 3 Not Detected (Not Detect); Parainfluenza Virus 4 Not Detected (Not Detect); Respiratory Syncytial Virus Not Detected (Not Detect)
[2020-11-25 08:52] VITALS: BP 119/58; PULSE 61; TEMP 37.2; O2SAT 99
[2020-11-25] MEDS: PRAVASTATIN 20 MG TABLET PO (08:52)
[2020-11-25] MEDS: guaiFENesin ER 600 MG TAB PO ×2 (08:53→21:14)
[2020-11-25] MEDS: DEXAMETHASONE 10 MG/ML VIAL 6 MG IV (08:53)
[2020-11-25] MEDS: ACETAMINOPHEN 325 MG TABLET 975 MG PO ×2 (08:53→21:19)
[2020-11-25] MEDS: CITALOPRAM 10 MG TABLET 40 MG PO (08:53)
[2020-11-25] MEDS: lisinopriL 20 MG TABLET PO (08:53)
[2020-11-25] MEDS: DOCUSATE 100 MG CAPSULE PO ×2 (08:58→21:14)
[2020-11-25] MEDS: LEVOTHYROXINE 75 MCG TABLET PO (08:58)
[2020-11-25] MEDS: FAMOTIDINE 20 MG TABLET 40 MG PO (08:58)
[2020-11-25] MEDS: ENOXAPARIN 40 MG/0.4 ML SYRINGE SUBCUT (08:59)
--- NOTE | 2020-11-25 09:25 | CM.DANOTE ---
Addendum entered by Anum Parrish LPN 11/25/20 10:09: Case discussed in Team Rounds. Dr. Moreno noted that pt would not need the IV dexamethasone for the full 10 day course. Medications per IV would only be indicated until pt improves enough to continue recovery in the home setting. Spoke next with RN Lisa Rowe, caring for pt today. She is unsure if pt has her cell phone in the room but will check on this when she is in the room providing care to pt later this morning. She also will clarify pt's support system at home and share info with DCP team. POA: is pt's daughter: Adele Dangelo: [phone]. Pt's sister is also of strong support to her: Danielle Turner: [phone]. Original Note: Discharge Planning/Care Management DCP: assessment: Case received, EMR reviewed. COVID + with specialized precautions: noted. Pt is a 70 year old female who admitted late last night to care of hospitalist team. PCP: Eobny Rachel Payer: Medicare and [facility] Pt is currently receiving IV Dethamethasone and Remdesivir as part of POC. She uses a CPAP at home and is a current cigarette smoker. DCP team will be following for d/c issues and options as these become clearer. Will discuss case today in Team Rounds. CM Discharge Assessment Start: 11/25/20 09:23 Freq: Status: Active Protocol: Document 11/25/20 09:23 ITV (Rec: 11/25/20 09:25 ITV [id number]) Discharge Planning Assessment Advance Directives? Yes History Provided By Medical Record Prior Living Arrangements House Household Members family,children Is patient alert and oriented? Yes Comment uses CPAP at home Review Status In Process
[2020-11-25 12:20] VITALS: BP 105/55; PULSE 60; RESP 22; O2SAT 97
[2020-11-25 12:35] VITALS: TEMP 36.9
--- NOTE | 2020-11-25 14:04 | PC.NURSE ---
PT INITIALLY ON 2L NC OXYGEN BUT SPO2 98-99% TOOK OFF AT AM MEAL AND THE LOWEST SPO2 HAS BEEN 92% - DIFFICULT FOR PT TO BE PRONE DUE TO CHRONIC BACK PAIN- BUT SHE ATTEMPTS TO FOR LONG TOLERATED OR TRIES SIDE-LYING. SHE IS ALERT/ORIENTED AND REPORTS FEELING TIRED AND ACHY - APPETITE IS FAIR AND MOVING BOWELS/BLADDER UNASSISTED IN BR- SHE WAS LACED ON PORTABLE TELE AND REMAINS SINUS BRADYCARDIC MOSTLY IN THE 45-55 BPM RANGE.
--- NOTE | 2020-11-25 14:28 | P.PN_ITS ---
Subjective Subjective Date Patient Seen: 11/25/20 Interval history: Patient is 62-year-old female current smoker, history of obstructive sleep apnea, chronic back pain, hypothyroidism admitted due to COVID-19 pneumonia. Patient endorses weakness, cough and shortness of breath. Her O2 sat has been 99% on 2 L, was 90% on room air at time of admission. She is on remdesivir and dexamethasone. Exam Vital Signs (past 8 hours): - 11/25/20 08:52 11/25/20 12:20 Temperature 98.9 F Pulse Rate 61 60 Respiratory Rate 22 Blood Pressure 119/58 L 105/55 L Pulse Oximetry 99 97 Oxygen Delivery Method Nasal Cannula Oxygen Flow Rate 0 Narrative Exam Narrative: General: Alert and cooperative female sitting at edge of bed and has a slight cough Lungs: Bilateral wheeze left greater than right Heart: Regular rhythm Abdomen: Soft Extremities: Nonedematous Neurological: Affect normal, sensorium intact Objective Labs Result Diagrams: 11/24/20 19:15 11/25/20 04:30 Labs: Laboratory Results - last 24 hr 11/24/20 11/24/20 11/24/20 19:15 19:15 19:15 WBC 7.1 RBC 4.34 Hgb 12.3 Hct 36.9 MCV 85.0 MCH 28.3 MCHC 33.2 RDW 14.0 Plt Count 180 Neut % (Auto) 81.8 H Lymph % (Auto) 14.8 L Pacific % (Auto) 3.2 Eos % (Auto) 0.0 L Baso % (Auto) 0.2 Neut # (Auto) 5800 Lymph # (Auto) 1000 L Pacific # (Auto) 200 Eos # (Auto) 0 Baso # (Auto) 0 PT INR APTT D-Dimer 314 H Sodium Potassium Chloride Carbon Dioxide BUN Creatinine Estimated GFR BUN/Creatinine Ratio Glucose Lactate Calcium Magnesium Ferritin Total Bilirubin AST ALT Alkaline Phosphatase Lactate Dehydrogenase Total Creatine Kinase CK-MB (CK-2) CK-MB (CK-2) Rel Index Troponin I C-Reactive Protein Total Protein Albumin Globulin Albumin/Globulin Ratio Procalcitonin 0.23 Nasal Screen MRSA (PCR) Chlamy pneumoniae PCR Adenovirus (PCR) B.parapertussis DNA PCR Coronavirus OC43 (PCR) Coronavirus HKU1 (PCR) Coronavirus 229E (PCR) COVID-19 PCR Coronavirus NL63 (PCR) Human Metapneumovir PCR Influenza Type A (PCR) Influenza Type B (PCR) M. pneumoniae (PCR) Parainfluenza 1 (PCR) Parainfluenza 2 (PCR) Parainfluenza 3 (PCR) Parainfluenza 4 (PCR) RSV (PCR) Entero/Rhino (PCR) 11/24/20 11/24/20 11/24/20 19:15 19:15 19:15 WBC RBC Hgb Hct MCV MCH MCHC RDW Plt Count Neut % (Auto) Lymph % (Auto) Pacific % (Auto) Eos % (Auto) Baso % (Auto) Neut # (Auto) Lymph # (Auto) Pacific # (Auto) Eos # (Auto) Baso # (Auto) PT INR APTT D-Dimer Sodium 138 Potassium 4.3 Chloride 108 H Carbon Dioxide 22 BUN 22 H Creatinine 0.89 Estimated GFR > 60.0 BUN/Creatinine Ratio 24.7 H Glucose 125 H Lactate 1.5 Calcium 9.2 Magnesium Ferritin 148 Total Bilirubin < 0.1 L AST 48 H ALT 31 Alkaline Phosphatase 102 Lactate Dehydrogenase 672 H Total Creatine Kinase 103 CK-MB (CK-2) 0.81 CK-MB (CK-2) Rel Index 0.8 L Troponin I < 0.012 C-Reactive Protein 1.6 H Total Protein 6.8 Albumin 4.0 Globulin 2.8 Albumin/Globulin Ratio 1.4 Procalcitonin Nasal Screen MRSA (PCR) Chlamy pneumoniae PCR Adenovirus (PCR) B.parapertussis DNA PCR Coronavirus OC43 (PCR) Coronavirus HKU1 (PCR) Coronavirus 229E (PCR) COVID-19 PCR Coronavirus NL63 (PCR) Human Metapneumovir PCR Influenza Type A (PCR) Influenza Type B (PCR) M. pneumoniae (PCR) Parainfluenza 1 (PCR) Parainfluenza 2 (PCR) Parainfluenza 3 (PCR) Parainfluenza 4 (PCR) RSV (PCR) Entero/Rhino (PCR) 11/24/20 11/24/20 11/24/20 19:15 19:15 22:15 WBC RBC Hgb Hct MCV MCH MCHC RDW Plt Count Neut % (Auto) Lymph % (Auto) Pacific % (Auto) Eos % (Auto) Baso % (Auto) Neut # (Auto) Lymph # (Auto) Pacific # (Auto) Eos # (Auto) Baso # (Auto) PT 11.9 INR 1.0 APTT 45 H D-Dimer Sodium Potassium Chloride Carbon Dioxide BUN Creatinine Estimated GFR BUN/Creatinine Ratio Glucose Lactate Calcium Magnesium 1.9 Ferritin Total Bilirubin AST ALT Alkaline Phosphatase Lactate Dehydrogenase Total Creatine Kinase CK-MB (CK-2) CK-MB (CK-2) Rel Index Troponin I C-Reactive Protein Total Protein Albumin Globulin Albumin/Globulin Ratio Procalcitonin Nasal Screen MRSA (PCR) Negative for mrsa Chlamy pneumoniae PCR Adenovirus (PCR) B.parapertussis DNA PCR Coronavirus OC43 (PCR) Coronavirus HKU1 (PCR) Coronavirus 229E (PCR) COVID-19 PCR Coronavirus NL63 (PCR) Human Metapneumovir PCR Influenza Type A (PCR) Influenza Type B (PCR) M. pneumoniae (PCR) Parainfluenza 1 (PCR) Parainfluenza 2 (PCR) Parainfluenza 3 (PCR) Parainfluenza 4 (PCR) RSV (PCR) Entero/Rhino (PCR) 11/25/20 11/25/20 04:00 04:30 WBC RBC Hgb Hct MCV MCH MCHC RDW Plt Count Neut % (Auto) Lymph % (Auto) Pacific % (Auto) Eos % (Auto) Baso % (Auto) Neut # (Auto) Lymph # (Auto) Pacific # (Auto) Eos # (Auto) Baso # (Auto) PT INR APTT D-Dimer Sodium 139 Potassium 4.4 Chloride 108 H Carbon Dioxide 27 BUN 24 H Creatinine 0.89 Estimated GFR > 60.0 BUN/Creatinine Ratio 27.0 H Glucose 106 Lactate Calcium 9.1 Magnesium Ferritin Total Bilirubin AST ALT Alkaline Phosphatase Lactate Dehydrogenase Total Creatine Kinase CK-MB (CK-2) CK-MB (CK-2) Rel Index Troponin I C-Reactive Protein Total Protein Albumin Globulin Albumin/Globulin Ratio Procalcitonin Nasal Screen MRSA (PCR) Chlamy pneumoniae PCR Not detected Adenovirus (PCR) Not detected B.parapertussis DNA PCR Not detected Coronavirus OC43 (PCR) Not detected Coronavirus HKU1 (PCR) Not detected Coronavirus 229E (PCR) Not detected COVID-19 PCR Detected H Coronavirus NL63 (PCR) Not detected Human Metapneumovir PCR Not detected Influenza Type A (PCR) Not detected Influenza Type B (PCR) Not detected M. pneumoniae (PCR) Not detected Parainfluenza 1 (PCR) Not detected Parainfluenza 2 (PCR) Not detected Parainfluenza 3 (PCR) Not detected Parainfluenza 4 (PCR) Not detected RSV (PCR) Not detected Entero/Rhino (PCR) Not detected [facility] Medical History Anxiety (~2014) Carpal tunnel syndrome (~2009) Chicken pox (~1954) Chronic back pain (~1989) Chronic cough (~2016) Degenerative disc disease, lumbar (~1994) Depression (~1989) Foot pain (~2011) Hay fever (~1974) Irritable bowel syndrome (~1999) Measles (~1954) Mumps (~1954) Recurrent sinusitis (~1974) Rheumatic fever (~1958) Sleep apnea (~2000) Surgical History History of carpal tunnel repair (~2000) History of carpal tunnel repair (~2016) History of spinal fusion Status post breast reduction Status post cholecystectomy Status post hysterectomy Family History Brother Age: 71 Prostate cancer Father Heart disease Mental health problem Mother Malignant neoplasm of female breast, unspecified laterality, unspecified site of breast Sister Age: 70 MS (multiple sclerosis) Grandfather No problems noted. Grandmother No problems noted. Grandfather No problems noted. Grandmother No problems noted. Social History marital status: household members: family and children lives independently: Yes pets and animals: Yes occupational status: employed Smoking Status: Current every day smoker alcohol intake: former substance use type: does not use Assessment & Plan Assessment & Plan narrative: This 70-year-old female who developed initial symptoms 8 days ago including cough congestion headache body aches who presents to the ER for follow-up evaluation after testing positive for COVID-19 on 11/22/2020. 1. COVID-19 pneumonia, acute, present on admission, active -O2 sat 90% room air on admission, ABG not obtained/documented to determine P/F ratio -chest x-ray demonstrates slightly worse stranding with left lateral base op acity consistent with viral pneumonia -she had positive markers with low lymphocytes at 14.8%, a D-dimer of 314, LDH 672, and CRP of 1.6. Lactate is 1.5 and procalcitonin 0.23. -ordered remdesivir 200 mg x1, then remdesivir 100 mg daily for an additional 4 days -dexamethasone 600 mg IV daily until discharge -supplemental O2 to maintain sat greater than 88% -patient to self prone as tolerated 2. Exacerbation of chronic lung disease, acute, present on admission, active -patient has underlying evidence of interstitial lung markings consistent with emphysema or fibrosis on chest x-ray in the setting of over 50 pack-year history of smoking. -patient presents with bilateral expiratory wheezing and crackles left greater than right and central coarseness. -requested respiratory therapy to consult evaluate and treat. -albuterol MDI 2 puffs every 4 hours as needed for wheezing only. -order guaifenesin 600 mg twice daily as needed. -respiratory panel negative other than for COVID 3. Sleep apnea, chronic, stable. -requested respiratory therapy to consult evaluate and treat. -ordered CPAP as able considering positioning, patient may use own machine. 4. Chronic low back pain, stable. -the patient is receiving steroid therapy in treatment of COVID pneumonia. -discussed treatment with the patient who agrees to Tylenol 975 mg every 8 hours for pain. 5. GERD, chronic, stable -continue daily PPI therapy per home routine 6. Essential hypertension, chronic -continue lisinopril 20 mg q.d. per home routine 7. Hypothyroidism, chronic -continue levothyroxine 75 mcg q.d. per home routine 8. Hyperlipidemia, chronic -continue pravastatin 20 mg q.d. per home routine 9. Depression, chronic and stable -continue citalopram 40 mg q.d. and trazodone 100 mg HS 10. Cigarette nicotine dependence -counseling provided to quit smoking -nicotine patch 21 mg per day VTE prophylaxis: Enoxaparin 40 mg daily IV fluid: Saline lock Diet: Heart healthy Code status: Full code Quality VTE Deep Vein Thrombosis/Pulmonary Embolism Present on Admission: No
[2020-11-25] MEDS: NICOTINE 21 MG PATCH TOP (15:26)
[2020-11-25 16:19] VITALS: BP 106/53; PULSE 55; RESP 21; TEMP 36.9; O2SAT 94
[2020-11-25 19:50] VITALS: BP 113/58; PULSE 51; RESP 20; TEMP 36.3; O2SAT 95
[2020-11-25] MEDS: MELATONIN 3 MG TABLET 6 MG PO (21:14)
[2020-11-25] MEDS: TRAZODONE 50 MG TABLET 100 MG PO (21:14)
[2020-11-25] MEDS: REMDESIVIR 100 MG in SODIUM CHLORIDE 0.9% 230 ML 125 ML IV (21:15)
[2020-11-25] MEDS: PANTOPRAZOLE 20 MG TABLET PO (21:18)
--- NOTE | 2020-11-25 22:58 | PC.NURSE ---
Shift Note: Pt comfortable and cooperative with care, O2Sats remain > 94% throughout this shift. Up ad ariadne to br and chair at the bedside. Proning right and left when in bed, states she is unable to fully prone because of previous back surgery. HR dipping down to the 30's Rimdesivir running at slow rate to minimize bradycardia.
[2020-11-26] VITALS (10 sets, daily range): BP systolic 109–133; BP diastolic 52–61; PULSE 38–54; RESP 13–22; TEMP 36.1–37.3; O2SAT 93–98
[2020-11-26] MEDS: LEVOTHYROXINE 75 MCG TABLET PO (05:49)
[2020-11-26] MEDS: PANTOPRAZOLE 20 MG TABLET PO ×2 (06:43→21:27)
[2020-11-26] MEDS: PRAVASTATIN 20 MG TABLET PO (09:08)
[2020-11-26] MEDS: lisinopriL 20 MG TABLET PO (09:08)
[2020-11-26] MEDS: CITALOPRAM 10 MG TABLET 40 MG PO (09:09)
[2020-11-26] MEDS: DOCUSATE 100 MG CAPSULE PO ×2 (09:09→21:27)
[2020-11-26] MEDS: ACETAMINOPHEN 325 MG TABLET 975 MG PO (09:09)
[2020-11-26] MEDS: NICOTINE 21 MG PATCH TOP (09:09)
[2020-11-26] MEDS: DEXAMETHASONE 10 MG/ML VIAL 6 MG IV (09:10)
[2020-11-26] MEDS: ENOXAPARIN 40 MG/0.4 ML SYRINGE SUBCUT (09:12)
[2020-11-26] MEDS: guaiFENesin ER 600 MG TAB PO ×2 (09:13→21:27)
--- NOTE | 2020-11-26 09:57 | P.PN_ITS ---
Subjective Subjective Date Patient Seen: 11/26/20 Interval history: Patient is 62-year-old female current smoker, history of obstructive sleep apnea, chronic back pain, hypothyroidism admitted due to COVID-19 pneumonia. Patient feels her breathing is stable though still very fatigued, has cough and feels winded getting to bathroom. She has been persistently bradycardic on telemetry with heart rate as low as 39 but typically in the 40s up to 50 range. This is thought to be side effect of remdesivir. Her O2 sats have been 94-95% on room air. Exam Vital Signs (past 8 hours): - 11/26/20 06:25 11/26/20 08:00 11/26/20 09:08 Temperature 98.5 F 98.3 F Pulse Rate 41 L 47 L 47 L Respiratory Rate 16 13 Blood Pressure 111/55 L 117/56 L 117/56 L Pulse Oximetry 94 93 Oxygen Delivery Method Room Air Oxygen Flow Rate 0 Narrative Exam Narrative: General: Alert and cooperative female with a slight cough Lungs: Coarse bilateral breath sounds with expiratory wheeze Heart: Bradycardic with regular rhythm Extremities: No edema Neurological: Affect normal, sensorium intact Objective Labs Result Diagrams: 11/24/20 19:15 11/25/20 04:30 [facility] Medical History Anxiety (~2014) Carpal tunnel syndrome (~2009) Chicken pox (~1954) Chronic back pain (~1989) Chronic cough (~2016) Degenerative disc disease, lumbar (~1994) Depression (~1989) Foot pain (~2011) Hay fever (~1974) Irritable bowel syndrome (~1999) Measles (~1954) Mumps (~1954) Recurrent sinusitis (~1974) Rheumatic fever (~1958) Sleep apnea (~2000) Surgical History History of carpal tunnel repair (~2000) History of carpal tunnel repair (~2016) History of spinal fusion Status post breast reduction Status post cholecystectomy Status post hysterectomy Family History Brother Age: 71 Prostate cancer Father Heart disease Mental health problem Mother Malignant neoplasm of female breast, unspecified laterality, unspecified site of breast Sister Age: 70 MS (multiple sclerosis) Grandfather No problems noted. Grandmother No problems noted. Grandfather No problems noted. Grandmother No problems noted. Social History marital status: household members: family and children lives independently: Yes pets and animals: Yes occupational status: employed Smoking Status: Current every day smoker alcohol intake: former substance use type: does not use Assessment & Plan Assessment & Plan narrative: This 70-year-old female who developed initial symptoms 8 days ago including cough congestion headache body aches who presents to the ER for follow-up evaluation after testing positive for COVID-19 on 11/02. 1. COVID-19 pneumonia, acute, present on admission, active -O2 sat 90% room air on admission, currently O2 sat 94-95% room air -chest x-ray demonstrates slightly worse stranding with left lateral base opacity consistent with viral pneumonia -she had positive markers with low lymphocytes at 14.8%, a D-dimer of 314, LDH 672, and CRP of 1.6. Lactate is 1.5 and procalcitonin 0.23. -ordered remdesivir 200 mg x1 on 11/24, then remdesivir 100 mg daily -dexamethasone 600 mg IV daily until discharge -supplemental O2 to maintain sat greater than 88% -patient to self prone as tolerated -albuterol MDI 2 puffs q.4 hours as needed -patient states she had normal PFTs 1 year ago -likely discharge tomorrow if respiratory status remains stable 2. Sinus bradycardia -she has developed sinus bradycardia since admission likely related to remdesivir therapy, no evidence of AV block, asymptomatic -continue telemetry monitoring 3. Sleep apnea, chronic, stable. -requested respiratory therapy to consult evaluate and treat. -ordered CPAP as able considering positioning, patient may use own machine. 4. Chronic low back pain, stable. -the patient is receiving steroid therapy in treatment of COVID pneumonia. -discussed treatment with the patient who agrees to Tylenol 975 mg every 8 hours for pain. 5. GERD, chronic, stable -continue daily PPI therapy per home routine 6. Essential hypertension, chronic -continue lisinopril 20 mg q.d. per home routine 7. Hypothyroidism, chronic -continue levothyroxine 75 mcg q.d. per home routine 8. Hyperlipidemia, chronic -continue pravastatin 20 mg q.d. per home routine 9. Depression, chronic and stable -continue citalopram 40 mg q.d. and trazodone 100 mg HS 10. Cigarette nicotine dependence -counseling provided to quit smoking -nicotine patch 21 mg per day VTE prophylaxis: Enoxaparin 40 mg daily IV fluid: Saline lock Diet: Heart healthy Code status: Full code Quality VTE Deep Vein Thrombosis/Pulmonary Embolism Present on Admission: No
[2020-11-26] MEDS: ALBUTEROL/IPRATROPIUM MDI 4 PUFF INH ×2 (12:33→19:13)
[2020-11-26] MEDS: TRAZODONE 50 MG TABLET 100 MG PO (21:27)
[2020-11-26] MEDS: REMDESIVIR 100 MG in SODIUM CHLORIDE 0.9% 230 ML 100 ML IV (21:27)
[2020-11-26] MEDS: MELATONIN 3 MG TABLET 6 MG PO (21:27)
[2020-11-27] MEDS: SENNOSIDES 8.6 MG TABLET PO (00:20)
[2020-11-27 00:29] VITALS: BP 138/63; PULSE 47; RESP 18; TEMP 36.8; O2SAT 97
[2020-11-27 03:12] VITALS: O2SAT 94
--- NOTE | 2020-11-27 05:17 | PC.NURSE ---
pt is refusing inhalers and RT treatments and is currently at 92% O2 on room air. Pt is sleeping on left side and was reminded to sleep on stomach as much as possible.
[2020-11-27] MEDS: LEVOTHYROXINE 75 MCG TABLET PO (05:57)
[2020-11-27] MEDS: PANTOPRAZOLE 20 MG TABLET PO (06:00)
[2020-11-27 06:08] VITALS: BP 137/66; PULSE 52; RESP 18; TEMP 36.8; O2SAT 96
[2020-11-27] MEDS: DEXAMETHASONE 10 MG/ML VIAL 6 MG IV (08:44)
[2020-11-27] MEDS: NICOTINE 21 MG PATCH TOP (08:45)
[2020-11-27] MEDS: lisinopriL 20 MG TABLET PO (08:46)
[2020-11-27] MEDS: PRAVASTATIN 20 MG TABLET PO (08:46)
[2020-11-27] MEDS: DOCUSATE 100 MG CAPSULE PO (08:46)
[2020-11-27] MEDS: guaiFENesin ER 600 MG TAB PO (08:46)
[2020-11-27] MEDS: ENOXAPARIN 40 MG/0.4 ML SYRINGE SUBCUT (08:47)
[2020-11-27] MEDS: CITALOPRAM 10 MG TABLET 40 MG PO (08:47)
[2020-11-27 09:00] VITALS: BP 114/66; PULSE 50; RESP 18; TEMP 36.8; O2SAT 92
--- NOTE | 2020-11-27 09:00 | P.DS_ITS ---
History of Present Illness History of Present Illness Chief complaint: states has covid and pnuemonia, not getting better Narrative: Ms. Nivia Mancuso is a 62-year-old female who is a current smoker with over 50 pack year history and a past medical history significant for hyperlipidemia, GERD, irritable bowel syndrome, hypothyroidism, rheumatic fever, sleep apnea using CPAP, anxiety and depression, chronic back pain related to degenerative disc disease who presents to the ER with worsening shortness of breath, cough and congestion. Patient states that her symptoms began 8 days ago with cough developing headache and body aches and progressive shortness of breath. The patient presented to the walk-in clinic where she was diagnosed with viral bronchitis and started on an inhaler and prednisone. Upon review the chest x-ray revealed concern for pneumonia and she was started on doxycycline and has taken approximately 5 doses.. A COVID screening was obtained at that time which subsequently came back positive. The patient was told she was not feeling better in 2 days to present to the ER for re-evaluation. Patient states her symptoms have been progressive and she endorses exertional dyspnea but denies nausea vomiting. She denies subjective fevers but has had some chills. She has chest wall pain from coughing and denies palpitations. She has shortness of breath with activity, a nonproductive dry cough and wheezing. She denies abdominal pain, nausea vomiting, diarrhea or constipation. She reports no urinary symptoms. Upon arrival the patient's temperature 97.3?, heart rate of 71, blood pressure 127/58, respirations 15 saturating 94% on room air. During stay in the ER low 2s continues moderate with saturations dropping to 90% at rest. Chest x-ray obtained when compared to previous x-ray dated is ago describes slightly worse stranding, left lateral base opacity, coarse interstitial markings suggestive of emphysema or fibrosis. Twelve lead EKG obtained finds sinus rhythm at a rate of 60 without ectopy or block, ST or T-wave changes no evidence of infarct. On laboratory analysis the patient has white count is 7.1 with lymphocytes at 14.8%, hemoglobin 13.3, hematocrit 36.9 and platelets of 180. D-dimer is slightly elevated at 314. Her electrolytes are within normal limits she has a BUN of 22 and creatinine is 0.89. Her nonfasting glucose is 125 on 3 days of steroids. She has a total bilirubin of less than 0.1, AST of 48, ALT of 31 and alkaline phosphatase of 102. She has positive markers for an LDH of 672, CRP 1.6, and ferritin of 148. Procalcitonin is 0.23 and her lactic acid is 1.5. She has a total CK of 103 within CK-MB of 0.81 for an index of 0.8%. Troponin is negative at less than 0.012. In the ER the patient demonstrates hypoxemia without exertion and has positive x-ray findings and therefore is admitted to the hospitalist service with COVID pneumonia. Discharge Providers Provider Date of admission: 11/24/20 21:04 Discharge Date: 11/27/20 Primary care physician: Ebony Rachel DO Consults: 11/24/20 21:40 Consult to Discharge Planning Routine Comment: Discharge provider: Júnior Moreno MD Summary Hospital Course Discharge Diagnosis: 1. COVID-19 pneumonia 2. Sinus bradycardia likely related to remdesivir 3. Obstructive sleep apnea 4. Cigarette nicotine dependency 5. Essential hypertension 6. Hypothyroidism 7. Chronic low back 8. Hyperlipidemia Hospital Course: Patient was admitted with symptoms of cough and dyspnea secondary to COVID-19 pneumonia. Her O2 sat was 90% on initial ER evaluation. She was managed with O2 support via nasal cannula and started on dexamethasone and remdesivir which she got total of 4 days therapy with both of these drugs. She has had gradual improvement in cough and dyspnea. Currently O2 sats have been 95-96% on room air. She has some wheezing on exam managed with albuterol MDI. She is provided counseling for smoking cessation. Status at Discharge Cognitive/behavioral status at discharge: oriented Functional status at discharge: independent ambulation Overall status at discharge: patient is progressing back to baseline Time Spent with Patient Time spent: Greater than 30 minutes Exam Vital Signs (past 8 hours): - 11/27/20 03:12 11/27/20 06:08 Temperature 98.2 F Pulse Rate 52 L Respiratory Rate 18 Blood Pressure 137/66 Pulse Oximetry 94 96 Oxygen Delivery Method Room Air Oxygen Flow Rate 0 Objective Labs Result Diagrams: 11/24/20 19:15 11/25/20 04:30 [facility] Medical History Anxiety (~2014) Carpal tunnel syndrome (~2009) Chicken pox (~1954) Chronic back pain (~1989) Chronic cough (~2016) Degenerative disc disease, lumbar (~1994) Depression (~1989) Foot pain (~2011) Hay fever (~1974) Irritable bowel syndrome (~1999) Measles (~1954) Mumps (~1954) Recurrent sinusitis (~1974) Rheumatic fever (~1958) Sleep apnea (~2000) Surgical History History of carpal tunnel repair (~2000) History of carpal tunnel repair (~2016) History of spinal fusion Status post breast reduction Status post cholecystectomy Status post hysterectomy Family History Brother Age: 71 Prostate cancer Father Heart disease Mental health problem Mother Malignant neoplasm of female breast, unspecified laterality, unspecified site of breast Sister Age: 70 MS (multiple sclerosis) Grandfather No problems noted. Grandmother No problems noted. Grandfather No problems noted. Grandmother No problems noted. Social History marital status: household members: family and children lives independently: Yes pets and animals: Yes occupational status: employed Smoking Status: Current every day smoker alcohol intake: former substance use type: does not use Discharge Plan Discharge Plan Patient Disposition: Home Provider Discharge Comment: Use albuterol inhaler as needed. You can discontinue home isolation after 2 weeks from onset of symptoms. Continue to wear mask outside of home. Stop smoking - use nicotine patch to help with quitting. Nursing Discharge Comment: d/c home after remdesivir and dexamethasone given Discharge orders & Medications Prescriptions: Continued levothyroxine 75 mcg tablet 75 mcg PO DAILY Qty: 90 RF: 3 turmeric paste See Rx Instructions .ROUTE .COMPLEX RF: 0 pravastatin 20 mg tablet 20 mg PO DAILY Qty: 90 RF: 3 albuterol sulfate 90 mcg/actuation HFA aerosol inhaler 2 puff inhalation Q4-6H PRN (Reason: shortness of breath or wheezing) Qty: 8.5 RF: 0 trazodone 50 mg tablet 100 mg PO HS Qty: 180 RF: 3 omeprazole 20 mg capsule,delayed release(DR/EC) 20 mg PO DAILY Qty: 90 RF: 1 dicyclomine 10 mg capsule 10 mg PO BID PRN (Reason: Abdominal Discomfort) RF: 0 lisinopril 20 mg tablet 20 mg PO DAILY RF: 0 citalopram 20 mg tablet 40 mg PO QAM RF: 0 Discontinued prednisone 50 mg tablet 50 mg PO DAILY 5 Days Qty: 5 RF: 0 benzonatate [Tessalon Perles] 100 mg capsule 100 mg PO BID-TID PRN (Reason: cough) Qty: 10 RF: 0 doxycycline hyclate 100 mg tablet 100 mg PO BID 7 Days Qty: 14 RF: 0 No Action (DME) Aerochamber MV Spacer See Rx Instructions .ROUTE .MEDSUPPLY Qty: 1 RF: 0 Follow up/Referrals: Ebony Rachel DO [Primary Care Provider] - Discharge Health Status Multidrug resistant organism: No MDRO Diet/Activity/Treatments Diet: Diet as Tolerated Skin/Wound/Dressing Care Report to your healthcare provider any signs of infection, such as:: chills, fever Discharge Data Primary Care Provider: Ebony Rachel VTE Deep Vein Thrombosis/Pulmonary Embolism Present on Admission: No
[2020-11-27 09:26] VITALS: O2SAT 96
[2020-11-27] MEDS: ALBUTEROL/IPRATROPIUM MDI 4 PUFF INH (09:44)
[2020-11-27 09:50] VITALS: PULSE 52; RESP 20; O2SAT 97
--- NOTE | 2020-11-27 10:55 | PC.NURSE ---
Pt given discharge instructions, discussed- medications, smoking cessation, follow-up appointments, s/s of infection. Witnessed pt sign the signature page of discharge instructions. IV removed, intact. Tele removed. Personal medications sent from pharmacy, given to pt. Pt dressed independently and all personal belongings sent with pt. Pt left via wheelchair with [employer] assistance, to ER entrance, where her grandson was waiting in POV.
== END 2020-11-27 10:45 | disposition home or self-care (01) | DRG 177 ==
LOC: ED 20:51 → AC 21:05 → ICU 22:02
PROVIDERS: Admitting Provider Nurse Practitioner Adult Health; Emergency Provider Emergency Medicine; PCP Family Medicine; Referring Provider Emergency Medicine; Visit Provider Nurse Practitioner Adult Health
DX: U07.1 COVID-19 (principal); J12.89 Other viral pneumonia; J43.9 Emphysema, unspecified; J84.10 Pulmonary fibrosis, unspecified; R00.1 Bradycardia, unspecified; T50.905A Adverse effect of unspecified drugs, medicaments and biological substances, initial encounter; G47.30 Sleep apnea, unspecified; F17.210 Nicotine dependence, cigarettes, uncomplicated; E78.5 Hyperlipidemia, unspecified; K21.9 Gastro-esophageal reflux disease without esophagitis; E03.9 Hypothyroidism, unspecified; G47.33 Obstructive sleep apnea (adult) (pediatric); F32.9 Major depressive disorder, single episode, unspecified; G89.29 Other chronic pain; I10 Essential (primary) hypertension
CPT/HCPCS: 36415; 71045; 71046; 80048; 80053; 82550; 82553; 82728; 83605; 83615; 83735; 84145; 84484; 85025; 85379; 85610; 85730; 86140; 87040; 87070; 87205; 87633; 87635; 87797; 93005; 94640; 94762; 99284; A9270; J1100; J1650